=== PATIENT | female | born 1960 | race Caucasian/White ===

== ENCOUNTER 2016-11-05 12:22 | Emergency (ER) | payer OTHER ==
[~2016-11-05] VITALS: Ht 167.6 cm; Wt 120.1 kg
[~2016-11-05 12:22] MED LIST: ADVAIR 250/501 DISK IH; ADVAIR HFA120 INHAL2 IH; ALLEGRA180 MG PO; AMBIEN CR12.5 MG PO; AMOX TR-K CLV1 EAC4 PO; ANORO ELLIPTA1 EACH IH; APRESOLINE50 MG PO; ASPIR 8181 M1 PO; ASPIRIN81 M2 PO; ATENOLOL25 MG PO; ATIVAN0.5 MG PO; ATORVASTATIN CA80 MG PO; AUGMENTIN875 MG PO; AZULFIDINE500 MG PO; Azulfidine PO; BACLOFEN10 MG PO; BACTRIM,SEPT1 TABLET PO; BENAZEPRIL HCL5 MG PO; BESIVANCE5 ML LEFT EYE; BESIVANCE5 ML RIGHT EYE; BISACODYL5 MG PO; BYSTOLIC5 MG PO; CARAFATE1 GM PO; CEFTIN500 MG PO; CEFUROXIME500 MG PO; CENTRUM SILVER1 EAC3 PO; CHLORPROMAZINE200 MG PO; CIMZIA400 MG/2 M PO; CIMZIA400 MG/2 M SC; CIPRO500 MG PO; CIPROFLOXACIN500 M1 PO; CLONAZEPAM1 MG PO; CLONIDINE HCL0.1 MG PO; CLOPIDOGREL75 MG PO; CO-GESIC 5-5001 EACH PO; COGENTIN0.5 MG PO; COLACE100 MG PO; CRESTOR5 MG PO; DAILY VITE1 EAC1 PO; DEPAKOTE ER250 MG PO; DEPAKOTE ER500 MG PO; DEPAKOTE250 MG PO; DEPAKOTE500 MG PO; DIAZEPAM2 MG PO; DIAZEPAM5 MG PO; DIFLUCAN150 MG PO; DIVALPROEX SOD500 M1 PO; DIVALPROEX SOD500 MG PO; DOCUSATE SODIU250 MG PO; DRISDOL50000 UNIT PO; DULCOLAX10 MG PR; DUONEB 2.5-0.5 M3 ML AEROSOL; DURAGESIC50 MCG TD; Depakene PO; Depakote PO; ECONOPRED PLUS10 ML RIGHT EYE; EFFEXOR XR75 MG PO; ERGOCALCIF50000 UNIT PO; EXTRA STRENGTH500 M1 PO; Ecotrin PO; FENTANYL1 EAC1 TD; FERROUS SULFAT325 MG PO; FERROUS SULFATE PO; FLAGYL500 MG PO; FLEET ENEMA-AD118 ML PR; FLONASE16 G1 BOTH NARES; FOLIC ACID0.4 MG PO; FOLIC ACID0.8 M1 PO; FOLIC ACID0.8 MG PO; FOLIC ACID1 MG PO; FUROSEMIDE20 MG PO; Folvite PO; GABAPENTIN300 MG PO; GABAPENTIN400 MG PO; GABAPENTIN600 MG PO; GELNIQUE 10%30 GM TD; GEODON20 MG PO; GEODON40 MG PO; GLUCOSAMINE &1 EAC1 PO; GLUCOSAMINE CH1 EAC2 PO; GRALISE300 MG PO; GUAIATUSSIN AC118 ML PO; HALDOL1 MG PO; HALOPERIDOL5 MG/1 M1 IM; HEPARIN SO5000 UNITS SC; HYDROCODON-ACE1 EAC7 PO; HYDROCODON-ACE1 EAC8 PO; HYDROCODON-ACE1 EAC9 PO; HYDROCODON-ACE1 EACH PO; HYDROCODONE-AP1 EAC8 PO; IRON160 M1 PO; IRON325 M1 PO; IRON325 MG PO; KADIAN30 MG PO; KLOR-CON 1010 ME1 PO; LANSOPRAZOLE30 MG PO; LASIX20 MG PO; LASIX40 MG PO; LAXATIVE5 M1 PO; LEVAQUIN500 MG PO; LEVETIRACETAM250 MG PO; LEVOFLOXACIN750 MG PO; LEVOTHYROXINE125 MCG PO; LEVOTHYROXINE25 MCG PO; LEVOXYL125 MCG PO; LEXAPRO10 MG PO; LIDOCAINE HCL35 GM TP; LINZESS145 MCG PO; LINZESS290 MCG PO; LIORESAL10 MG PO; LIPITOR80 MG PO; LISINOPRIL10 MG PO; LISINOPRIL20 MG PO; LISINOPRIL40 MG PO; LORAZEPAM1 MG PO; LORTAB 10-3251 EACH PO; LORTAB 5-500 T1 EAC1 PO; LOTENSIN10 MG PO; LOTENSIN5 MG PO; LOTRISONE15 GM TP; Lioresal PO; MECLIZINE HCL25 M3 PO; MEDROL DOSEPAK4 MG PO; METOPROLOL SUCC25 MG PO; METOPROLOL SUCC50 MG PO; METOPROLOL TART25 MG PO; METRONIDAZOLE500 MG PO; MILK OF MAGN PO; MIRALAX17 GM PO; MIRALAX255 GM PO; MOBIC15 MG PO; MORPHINE SULFAT15 M1 PO; MOVANTIK25 MG PO; MS CONTIN,ORAMO15 M1 PO; MS CONTIN,ORAMO30 MG PO; NEURONTIN300 MG PO; NEURONTIN600 MG PO; NEURONTIN800 MG PO; NORCO 10/3251 TABLET PO; NORCO 5/3251 TABLET PO; NORCO 7.5/321 TABLET PO; OPANA ER10 MG PO; OPANA ER5 MG PO; OPANA IR5 MG PO; OXYMORPHONE HCL10 M1 PO; OXYMORPHONE HCL5 M1 PO; OXYMORPHONE HCL5 MG PO; Opana ER PO; PAXIL20 MG PO; PEPCID20 MG PO; PHENADOZ25 MG PR; PHENAZOPYRIDIN200 MG PO; PHENERGAN-CODE120 ML PO; PHENERGAN25 MG PR; PLAVIX75 MG PO; PREDNISONE10 MG PO; PREDNISONE20 MG PO; PREMARIN VAGI42.5 GM TP; PREMARIN VAGI42.5 GM VG; PRINIVIL5 MG PO; PROAIR HFA8.5 GM IH; PROCHLORPERAZIN10 MG PO; PROMETHAZINE HC25 M1 PO; PROMETHAZINE HC25 MG PR; PROMETHEGAN25 MG PR; PROTONIX40 MG PO; PROVENTIL,2.5 MG/3 M IH; PYRIDIUM200 MG PO; QUETIAPINE FUM100 MG PO; QUETIAPINE FUM300 MG PO; QUETIAPINE FUM400 MG PO; QVAR 40 MCG IN7.3 GM IH; RANITIDINE HCL300 MG PO; REGLAN10 MG PO; REMEDY CALAZIM113 G2 TP; RESTORIL15 MG PO; RESTORIL30 MG PO; RISPERDAL2 MG PO; RISPERDAL3 MG PO; RISPERIDONE2 MG PO; Reglan PO; SALT SUPPLEMENT PO; SENEXON-S TABL1 EACH PO; SENNA S TABLET1 EACH PO; SENNA-DOCUSATE1 EAC1 PO; SEROPHENE50 MG PO; SEROQUEL200 MG PO; SEROQUEL400 MG PO; SEROQUEL50 MG PO; SEROquel PO; SILVADENE20 GM TP; SIMVASTATIN40 MG PO; SODIUM CHLORIDE1 G1 PO; SPIRIVA RESPIMAT4 GM IH; SPIRIVA1 INHALATI IH; STAVZOR500 MG PO; SULFASALAZINE500 MG PO; SULFAZINE500 MG PO; SYNTHROID25 MCG PO; Sodium Chloride PO; TENORMIN25 MG PO; THERMOTABS1 TABLET PO; TIAGABINE HCL4 MG PO; TIZANIDINE HCL2 M1 PO; TIZANIDINE HCL2 MG PO; TIZANIDINE HCL4 MG PO; TOPAMAX50 MG PO; TOPROL XL25 MG PO; TRAMADOL HCL50 MG PO; TROKENDI XR100 MG PO; TUMS500 MG PO; TYLENOL EXTRA500 MG PO; TYLENOL REGULA325 MG PO; Tenormin PO; ULTRAM50 MG PO; VALIUM2 MG PO; VALIUM5 MG PO; VENLAFAXINE HCL75 MG PO; VENTOLIN HFA18 GM IH; VICODIN HP 10-1 EACH PO; VIMPAT150 MG PO; VIMPAT200 MG PO; VIMPAT50 MG PO; VITAMIN D PO; VITAMIN D250000 UNIT PO; VITAMIN D31000 UNI2 PO; VITAMIN D35000 UNIT PO; VITAMIN D5000 UNI1 PO; VITAMIN D5000 UNIT PO; Valium PO; XANAX0.25 MG PO; ZANAFLEX2 MG PO; ZANAFLEX4 MG PO; ZANTAC150 MG PO; ZANTAC300 MG PO; ZESTRIL20 MG PO; ZITHROMAX500 MG PO; ZOCOR40 MG PO; ZOFRAN4 MG PO; ZYVOX600 MG PO; Zofran PO; [UNRECOGNIZED DRUG - REMARK]
[2016-11-05 14:23] LABS: HEMATOCRIT 38.1 % (36.0-46.0); MCH 30.7 PG (29.0-34.0); MCHC 32.5 G/DL (30.0-36.0); MCV 94.3 FL (83-99); MEAN PLAT.VOLUME 9.6 uM^3 (9.5-12.4); PLATELET COUNT 111 K/uL (156-360); RBC DIS.WIDTH-CV 13.4 % (11.8-14.6); RBC DIS.WIDTH-SD 44.5 % (39-53); RED BLOOD COUNT 4.04 M/uL (3.80-5.20); WHITE BLOOD COUNT 4.3 K/uL (4.1-10.2)
[2016-11-05 14:25] LABS: EOSINOPHIL (%) 1.4 % (0-5); EOSINOPHIL COUNT 0.1 K/uL (0-0.3); IMMATURE GRANULOCYTE (%) 0.2 % (0.0-0.7); IMMATURE GRANULOCYTE COUNT 0.1 K/uL; LYMPHOCYTE COUNT 1.8 K/uL (1.0-2.8); MONOCYTE (%) 18.6 % (3-12); MONOCYTE COUNT 0.8 K/uL (0-0.8); NEUTROPHIL (%) 38.1 % (45-76); NEUTROPHIL COUNT 1.6 K/uL (1.8-6.4)
[2016-11-05 14:33] LABS: INTER. NORMALIZED RATIO 1.1; PROTHROMBIN TIME 11.5 (9.2-11.2); PTT 32.4 (25-32)
[2016-11-05 14:37] LABS: CHLORIDE 99 mEq/L (99-109); SODIUM 141 mEq/L (136-147)
[2016-11-05 14:39] LABS: GLUCOSE 109 mg/dL (70-99)
[2016-11-05 14:41] LABS: ANION GAP 15 MEQ/L (2-14)
[2016-11-05 14:43] LABS: GFR ESTIMATE (CALCULATED) 45 mL/min/
[2016-11-05 14:44] LABS: TROP-I INTERPRETATION NEGATIVE; TROPONIN-I < 0.01 ng/mL (0.0-0.30); UREA NITROGEN (BUN) 9 mg/dL (9-23)
[2016-11-05 15:08] LABS: ADD MIUA? YES; BILIRUBIN NEGATIVE; BLOOD NEGATIVE; COLOR YELLOW ((YELLOW)); GLUCOSE (STRIP) NEGATIVE; KETONES NEGATIVE; LEUKOCYTES MODERATE; NITRITE NEGATIVE; PH, URINE 5.5 (5-8); PROTEIN (STRIP) NEGATIVE; SPECIFIC GRAVITY 1.012 (1.000-1.030); UROBILINOGEN 0.2 MG/DL (0.2-1.0)
[2016-11-05 15:27] LABS: BACTERIA NONE SEEN; CASTS NONE SEEN /LPF; CRYSTALS NONE SEEN; EPITHELIAL CELLS RARE; MUCUS NONE SEEN; RED BLOOD CELLS NONE SEEN /HPF (0-5); UCUL ADDED? NO
[2016-11-05] MEDS ORDERED: KEFLEX500 MG PO (16:55)
[2016-11-05 18:05] VITALS: BP 112/57
== END 2016-11-05 18:07 | disposition home or self-care (01) ==
LOC: EME 12:22
PROVIDERS: Emergency Medicine
DX: N39.0 Urinary tract infection, site not specified (principal); E87.6 Hypokalemia; R41.82 Altered mental status, unspecified; M79.7 Fibromyalgia; G89.29 Other chronic pain; K21.9 Gastro-esophageal reflux disease without esophagitis; R56.9 Unspecified convulsions; Z86.73 Personal history of transient ischemic attack (TIA), and cerebral infarction without residual deficits; Z87.891 Personal history of nicotine dependence
CPT/HCPCS: 70450; 71010; 80048; 81003; 83735; 84484; 85025; 85610; 85730; 93005; 99281; 99284; J0696; J7030; J7050

== ENCOUNTER 2016-12-14 18:56 | Observation (INO) | payer OTHER ==
[~2016-12-14] VITALS: Ht 157.5 cm; Wt 115.9 kg
[~2016-12-14 18:56] MED LIST changes: +KEFLEX500 MG PO
[2016-12-14] MEDS ORDERED: FENTANYL1 EAC5 TD (20:21)
[2016-12-14 20:32] LABS: MCH 30.6 PG (29.0-34.0); MCHC 32.7 G/DL (30.0-36.0); MCV 93.5 FL (83-99); MEAN PLAT.VOLUME 9.2 uM^3 (9.5-12.4); PLATELET COUNT 80 K/uL (156-360); RBC DIS.WIDTH-CV 14.6 % (11.8-14.6); RBC DIS.WIDTH-SD 47.2 % (39-53); RED BLOOD COUNT 3.53 M/uL (3.80-5.20); WHITE BLOOD COUNT 3.3 K/uL (4.1-10.2)
[2016-12-14 20:53] LABS: CHLORIDE 103 mEq/L (99-109); POTASSIUM 4.7 mEq/L (3.7-5.4); SODIUM 141 mEq/L (136-147); TROP-I INTERPRETATION NEGATIVE; TROPONIN-I 0.01 ng/mL (0.0-0.30)
[2016-12-14 20:55] LABS: GLUCOSE 97 mg/dL (70-99)
[2016-12-14 20:56] LABS: ANION GAP 12 MEQ/L (2-14)
[2016-12-14 20:59] LABS: GFR ESTIMATE (CALCULATED) 17 mL/min/
[2016-12-14 21:00] LABS: UREA NITROGEN (BUN) 28 mg/dL (9-23)
[2016-12-14] MEDS ORDERED: LOPRESSOR25 MG PO (22:24)
[2016-12-14] MEDS ORDERED: LASIX20 MG PO (22:28)
[2016-12-14] MEDS ORDERED: TOPIRAMATE100 MG PO (22:31)
[2016-12-14] MEDS ORDERED: KLOR-CON M2020 MEQ PO (22:31)
[2016-12-14] MEDS ORDERED: LEVO-T25 MCG PO (22:32)
[2016-12-14] MEDS ORDERED: CORTISONE99 GM TP (22:33)
[2016-12-14] MEDS ORDERED: MEXSANA330 GM TP (22:34)
[2016-12-15 00:51] LABS: TOTAL BILIRUBIN 0.3 mg/dL (0.0-1.0)
[2016-12-15 00:52] LABS: ALKALINE PHOSPHATASE 56 IU/L (3-129)
[2016-12-15 00:55] LABS: DIRECT BILIRUBIN 0.1 mg/dL (0.0-0.3)
[2016-12-15 00:56] LABS: LIPASE 191 U/L (1.0-51.0)
[2016-12-15 01:38] LABS: ANISOCYTOSIS 1+; PLAT.SUFFICIENCY DECREASED; POLYCHROMASIA 1+; USER ID SLU
[2016-12-15 01:39] LABS: EOSINOPHIL (%) 0.7 % (0-5); IMMATURE GRANULOCYTE (%) 2.3 % (0.0-0.7); IMMATURE GRANULOCYTE COUNT 0.1 K/uL; LYMPHOCYTE COUNT 1.4 K/uL (1.0-2.8); MONOCYTE (%) 15.1 % (3-12); MONOCYTE COUNT 0.5 K/uL (0-0.8); NEUTROPHIL (%) 37.3 % (45-76); NEUTROPHIL COUNT 1.1 K/uL (1.8-6.4)
[2016-12-15 02:47] LABS: SALICYLATE < 5.0 MG/DL (15-30); URIC ACID 11.8 mg/dL (3.1-9.2)
[2016-12-15 03:12] VITALS: BP 110/71
[2016-12-15 05:00] LABS: METH RESISTANT S AUREUS PCR POSITIVE (NEGATIVE)
[2016-12-15 05:10] LABS: PROBE CHECK PASS
[2016-12-15 09:20] VITALS: BP 133/99
[2016-12-15 09:20] LABS: ANION GAP 14 MEQ/L (2-14); CHLORIDE 104 MEQ/L (99-109); POTASSIUM 3.9 MEQ/L (3.7-5.4); SAMPLE HEMOLYSIS CHECK 0; SAMPLE ICTERIC CHECK 0; SAMPLE LIPEMIA CHECK 0; SODIUM 142 MEQ/L (136-147)
[2016-12-15 09:28] LABS: GFR ESTIMATE (CALCULATED) 20 mL/min/; GLUCOSE 88 mg/dL (70-99); SERUM ETHYL ALCOHOL < 10 mg/dL; UREA NITROGEN (BUN) 26 mg/dL (9-23)
[2016-12-15 11:55] VITALS: BP 112/70
[2016-12-15 13:07] LABS: ABSOLUTE RETICULOCYTE CT. 0.1 M/uL (0.02-0.08); IMM.RETIC FRACTION 9.7 % (3-19); RETIC HGB EQUIVALENT 34.7 (28-36); RETICULOCYTE COUNT 2.8 % (0.5-1.8)
[2016-12-15 16:12] VITALS: BP 110/74
[2016-12-15 16:49] LABS: ANION GAP 6 MEQ/L (2-14); CHLORIDE 106 MEQ/L (99-109); POTASSIUM 4.4 MEQ/L (3.7-5.4); SAMPLE HEMOLYSIS CHECK 0; SAMPLE ICTERIC CHECK 0; SAMPLE LIPEMIA CHECK 0; SODIUM 140 MEQ/L (136-147)
[2016-12-15 16:54] LABS: GFR ESTIMATE (CALCULATED) 23 mL/min/; GLUCOSE 108 mg/dL (70-99); UREA NITROGEN (BUN) 24 mg/dL (9-23)
[2016-12-15 18:58] LABS: ADD MIUA? NO; BILIRUBIN NEGATIVE; BLOOD NEGATIVE; COLOR YELLOW ((YELLOW)); GLUCOSE (STRIP) NEGATIVE; KETONES NEGATIVE; LEUKOCYTES NEGATIVE; NITRITE NEGATIVE; PROTEIN (STRIP) NEGATIVE; SPECIFIC GRAVITY 1.016 (1.000-1.030); UROBILINOGEN 0.2 MG/DL (0.2-1.0)
[2016-12-15 19:30] LABS: AMPHETAMINES QUANT VALUE 0 NG/ML; BARBITUATES QUANT VALUE 0 NG/ML; BENZODIAZEPINES, URINE SCREEN POSITIVE (200 ng/mL); MARIJUANA QUANT VALUE 0 NG/ML; OPIATES QUANTITATIVE VALUE 0 NG/ML; PHENCYCLIDINE QUANT VALUE 0 NG/ML
[2016-12-15 20:17] VITALS: BP 132/70
[2016-12-16 05:49] VITALS: BP 138/63
[2016-12-16 06:47] LABS: HEMATOCRIT 32.1 % (36.0-46.0); MCH 31.1 PG (29.0-34.0); MCHC 32.7 G/DL (30.0-36.0); MEAN PLAT.VOLUME 9.4 uM^3 (9.5-12.4); PLATELET COUNT 76 K/uL (156-360); RBC DIS.WIDTH-CV 15.5 % (11.8-14.6); RBC DIS.WIDTH-SD 53.5 % (39-53); RED BLOOD COUNT 3.38 M/uL (3.80-5.20); WHITE BLOOD COUNT 3.3 K/uL (4.1-10.2)
[2016-12-16 06:59] LABS: INTER. NORMALIZED RATIO 1.2; PROTHROMBIN TIME 12.2 (9.2-11.2)
[2016-12-16 07:17] LABS: CHLORIDE 108 MEQ/L (99-109); GFR ESTIMATE (CALCULATED) 31 mL/min/; GLUCOSE 97 mg/dL (70-99); LACTATE DEHYDROGENASE 176 IU/L (20-246); POTASSIUM 3.9 MEQ/L (3.7-5.4); SAMPLE HEMOLYSIS CHECK 0; SAMPLE ICTERIC CHECK 0; SODIUM 140 MEQ/L (136-147); UREA NITROGEN (BUN) 20 mg/dL (9-23)
[2016-12-16 07:18] LABS: ANION GAP 6 MEQ/L (2-14); SAMPLE LIPEMIA CHECK 0
[2016-12-16 07:30] VITALS: BP 111/59
[2016-12-16 12:06] VITALS: BP 148/70
[2016-12-16] MEDS ORDERED: DIAZEPAM2 MG PO (15:08)
[2016-12-18 10:12] LABS: Flow Clinical Information R/O LYMPHOMA (()); Flow Number of Markers 22 (()); Flow Spec Viability 97 % (()); Flow Specimen Type PERIPHERAL BLOOD (())
== END 2016-12-16 17:38 | disposition home or self-care (01) ==
LOC: EME 18:56 → 5WEST 12-15 01:24 → EDOF 12-15 01:24 → 5WEST 12-15 02:49
PROVIDERS: Hospitalist; Internal Medicine; Internal Medicine Nephrology
DX: G92 Toxic encephalopathy (principal); T65.891A Toxic effect of other specified substances, accidental (unintentional), initial encounter; N17.9 Acute kidney failure, unspecified; E86.0 Dehydration; G89.29 Other chronic pain; M54.9 Dorsalgia, unspecified; Z79.891 Long term (current) use of opiate analgesic; D61.811 Other drug-induced pancytopenia; F25.9 Schizoaffective disorder, unspecified; T42.4X1A Poisoning by benzodiazepines, accidental (unintentional), initial encounter; L89.313 Pressure ulcer of right buttock, stage 3; E66.01 Morbid (severe) obesity due to excess calories; Z68.42 Body mass index [BMI] 45.0-49.9, adult; M45.9 Ankylosing spondylitis of unspecified sites in spine; Z86.73 Personal history of transient ischemic attack (TIA), and cerebral infarction without residual deficits; G43.909 Migraine, unspecified, not intractable, without status migrainosus; K21.9 Gastro-esophageal reflux disease without esophagitis; I10 Essential (primary) hypertension; E78.5 Hyperlipidemia, unspecified; E03.9 Hypothyroidism, unspecified; Z82.49 Family history of ischemic heart disease and other diseases of the circulatory system; Z82.3 Family history of stroke; Z88.8 Allergy status to other drugs, medicaments and biological substances
CPT/HCPCS: 70450; 71020; 74176; 80048; 80069; 80076; 80164; 80306 90; 81003; 82140; 82436; 82607; 82746; 83010 90; 83615; 83690; 83880; 84133; 84300; 84484; 84550; 85007; 85025; 85027; 85045; 85060; 85610; 87641; 88184 90; 88185 90; 88189 90; 93005; 94640; 94640 76; 99202; 99281; 99285; G0378; G0480; G8978 GP CJ; G8979 GP CI; G8987 GO CJ; G8988 CI; J7030

== ENCOUNTER 2017-02-28 20:57 | Observation (INO) | payer OTHER ==
[~2017-02-28] VITALS: Ht 157.5 cm; Wt 115.6 kg
[~2017-02-28 20:57] MED LIST changes: +CORTISONE99 GM TP; +FENTANYL1 EAC5 TD; +KLOR-CON M2020 MEQ PO; +LEVO-T25 MCG PO; +LOPRESSOR25 MG PO; +MEXSANA330 GM TP; +TOPIRAMATE100 MG PO
[2017-02-28 22:00] LABS: EOSINOPHIL (%) 0.3 % (0-5); HEMATOCRIT 33.9 % (36.0-46.0); IMMATURE GRANULOCYTE (%) 0.5 % (0.0-0.7); INSTRUMENT ABS NEUTROPHIL CT 3.7 K/uL; LYMPHOCYTE COUNT 1.8 K/uL (1.0-2.8); MCH 32.5 PG (29.0-34.0); MCHC 33.3 G/DL (30.0-36.0); MEAN PLAT.VOLUME 9.3 uM^3 (9.5-12.4); MONOCYTE (%) 10.9 % (3-12); MONOCYTE COUNT 0.7 K/uL (0-0.8); NEUTROPHIL (%) 58.6 % (45-76); NEUTROPHIL COUNT 3.7 K/uL (1.8-6.4); PLATELET COUNT 175 K/uL (156-360); RBC DIS.WIDTH-CV 12.7 % (11.8-14.6); RBC DIS.WIDTH-SD 45.1 % (39-53); RED BLOOD COUNT 3.48 M/uL (3.80-5.20); WHITE BLOOD COUNT 6.2 K/uL (4.1-10.2)
[2017-02-28 22:11] LABS: Estimated Average Glucose 91 mg/dL (70-123); HEMOGLOBIN A1c (GLYCOHEMOGLOB) 4.8 % HGB (Below 5.7)
[2017-02-28 22:14] LABS: CHLORIDE 97 mEq/L (99-109); POTASSIUM 4.5 mEq/L (3.7-5.4); SODIUM 129 mEq/L (136-147)
[2017-02-28 22:15] LABS: INTER. NORMALIZED RATIO 1.1; PROTHROMBIN TIME 10.7 (9.2-11.2); PTT 33.4 (25-32)
[2017-02-28 22:16] LABS: GLUCOSE 92 mg/dL (70-99); MCV 97.4 FL (83-99)
[2017-02-28 22:17] LABS: ANION GAP 8 MEQ/L (2-14)
[2017-02-28 22:18] LABS: TOTAL BILIRUBIN 0.3 mg/dL (0.0-1.0)
[2017-02-28 22:19] LABS: ALKALINE PHOSPHATASE 55 IU/L (3-129)
[2017-02-28 22:20] LABS: GFR ESTIMATE (CALCULATED) 55 mL/min/
[2017-02-28 22:21] LABS: UREA NITROGEN (BUN) 16 mg/dL (9-23)
[2017-02-28 22:22] LABS: TROP-I INTERPRETATION NEGATIVE; TROPONIN-I < 0.01 ng/mL (0.0-0.30)
[2017-02-28 22:50] LABS: ADD MIUA? YES; BILIRUBIN NEGATIVE; BLOOD NEGATIVE; GLUCOSE (STRIP) NEGATIVE; KETONES 5; LEUKOCYTES NEGATIVE; NITRITE NEGATIVE; PROTEIN (STRIP) 100; SPECIFIC GRAVITY 1.024 (1.000-1.030); UROBILINOGEN 0.2 MG/DL (0.2-1.0)
[2017-02-28 22:55] LABS: HDL CHOLESTEROL 65 MG/DL (Desirable>=50); LDL CHOLESTEROL 67 mg/dL (Desirable<100); NON-HDL CHOLESTEROL 89 mg/dL (Desirable<160); TOTAL CHOLESTEROL 154 mg/dL (Desirable<200); TRIGLYCERIDES 111 MG/DL (Normal: <150)
[2017-02-28 23:03] LABS: BACTERIA RARE /HPF; EPITHELIAL CELLS 1+ /HPF; MUCUS TRACE /LPF; RED BLOOD CELLS 0-5 /HPF (0-5); UCUL ADDED? NO; WHITE BLOOD CELLS 0-5 /HPF (0-5)
[2017-02-28 23:04] LABS: COLOR YELLOW ((YELLOW))
[2017-02-28] MEDS ORDERED: LEXAPRO20 MG PO (23:36)
[2017-02-28] MEDS ORDERED: VITAMIN D31000 UNIT PO (23:37)
[2017-02-28] MEDS ORDERED: TRIPLE FLEX CA1 EACH PO (23:38)
[2017-02-28] MEDS ORDERED: DEPAKOTE500 MG PO (23:38)
[2017-02-28] MEDS ORDERED: DURAGESIC12 MCG TD (23:39)
[2017-02-28] MEDS ORDERED: TOPIRAMATE50 MG PO (23:40)
[2017-02-28] MEDS ORDERED: HYDROXYZINE HCL25 MG PO (23:41)
[2017-02-28] MEDS ORDERED: HYDROXYZINE PAM25 MG PO (23:41)
[2017-02-28] MEDS ORDERED: OXYCODONE HCL5 MG PO (23:42)
[2017-03-01 02:12] VITALS: BP 118/84
[2017-03-01 08:30] VITALS: BP 144/74
[2017-03-01 12:00] VITALS: BP 144/90
[2017-03-01 15:16] VITALS: BP 119/59
[2017-03-01] MEDS ORDERED: LO-DOSE ASPIRIN81 M2 PO (15:45)
== END 2017-03-01 18:01 | disposition home or self-care (01) ==
LOC: EME → EDBD 20:57 → EDOF 03-01 01:00 → 5SOUTH 03-01 01:00
PROVIDERS: Emergency Medicine
DX: G43.909 Migraine, unspecified, not intractable, without status migrainosus (principal); R20.0 Anesthesia of skin; G40.909 Epilepsy, unspecified, not intractable, without status epilepticus; I10 Essential (primary) hypertension; E78.5 Hyperlipidemia, unspecified; K21.9 Gastro-esophageal reflux disease without esophagitis; E03.9 Hypothyroidism, unspecified; G89.4 Chronic pain syndrome; M54.9 Dorsalgia, unspecified; E66.01 Morbid (severe) obesity due to excess calories; Z86.73 Personal history of transient ischemic attack (TIA), and cerebral infarction without residual deficits; I89.0 Lymphedema, not elsewhere classified; F41.9 Anxiety disorder, unspecified; F32.9 Major depressive disorder, single episode, unspecified; D63.8 Anemia in other chronic diseases classified elsewhere; I35.0 Nonrheumatic aortic (valve) stenosis; F11.20 Opioid dependence, uncomplicated; K59.00 Constipation, unspecified; F25.9 Schizoaffective disorder, unspecified; M45.9 Ankylosing spondylitis of unspecified sites in spine; R53.1 Weakness
CPT/HCPCS: 70450; 70496; 70498; 70551; 71010; 80053; 80061; 81003; 83036; 84484; 85025; 85610; 85730; 93005; 94640; 99202; 99281; 99285; G0378; J0780; J1200; J1644; J7040

== ENCOUNTER 2017-03-08 22:27 | Emergency (ER) | payer OTHER ==
[~2017-03-08] VITALS: Ht 157.5 cm; Wt 110.6 kg
[~2017-03-08 22:27] MED LIST changes: +DURAGESIC12 MCG TD; +HYDROXYZINE HCL25 MG PO; +HYDROXYZINE PAM25 MG PO; +LEXAPRO20 MG PO; +LO-DOSE ASPIRIN81 M2 PO; +OXYCODONE HCL5 MG PO; +TOPIRAMATE50 MG PO; +TRIPLE FLEX CA1 EACH PO; +VITAMIN D31000 UNIT PO
[2017-03-09 01:30] VITALS: BP 147/87
== END 2017-03-09 01:31 | disposition home or self-care (01) ==
LOC: EME 22:27 → RME 22:27
DX: S81.012A Laceration without foreign body, left knee, initial encounter (principal); W19.XXXA Unspecified fall, initial encounter; Y93.01 Activity, walking, marching and hiking; Y92.039 Unspecified place in apartment as the place of occurrence of the external cause; J44.9 Chronic obstructive pulmonary disease, unspecified; I12.9 Hypertensive chronic kidney disease with stage 1 through stage 4 chronic kidney disease, or unspecified chronic kidney disease; Z87.891 Personal history of nicotine dependence; Z88.1 Allergy status to other antibiotic agents; Z88.6 Allergy status to analgesic agent; Z88.8 Allergy status to other drugs, medicaments and biological substances
CPT/HCPCS: 73564; 99281; 99284

== ENCOUNTER 2017-03-19 08:37 | Inpatient (IN) | payer OTHER ==
[~2017-03-19] VITALS: Ht 157.5 cm; Wt 119.8 kg
[2017-03-19 10:23] LABS: HEMATOCRIT 35.7 % (36.0-46.0); MCH 32.6 PG (29.0-34.0); MCHC 35.3 G/DL (30.0-36.0); RBC DIS.WIDTH-CV 11.9 % (11.8-14.6); RBC DIS.WIDTH-SD 39.8 % (39-53); RED BLOOD COUNT 3.86 M/uL (3.80-5.20)
[2017-03-19 10:24] LABS: CHLORIDE 97 mEq/L (99-109); POTASSIUM 4.2 mEq/L (3.7-5.4); SODIUM 126 mEq/L (136-147)
[2017-03-19 10:25] LABS: GLUCOSE 90 mg/dL (70-99)
[2017-03-19 10:27] LABS: ANION GAP 10 MEQ/L (2-14)
[2017-03-19 10:28] LABS: MCV 92.5 FL (83-99); WHITE BLOOD COUNT 3.5 K/uL (4.1-10.2)
[2017-03-19 10:29] LABS: GFR ESTIMATE (CALCULATED) > 59 mL/min/
[2017-03-19 10:30] LABS: UREA NITROGEN (BUN) 8 mg/dL (9-23)
[2017-03-19 11:12] LABS: EOSINOPHIL (%) 1.7 % (0-5); EOSINOPHIL COUNT 0.1 K/uL (0-0.3); HEMATOLOGY COMMENT 1 SMEAR COMPATIBLE; IMMATURE GRANULOCYTE (%) 1.1 % (0.0-0.7); INSTRUMENT ABS NEUTROPHIL CT 1.5 K/uL; LYMPHOCYTE COUNT 1.4 K/uL (1.0-2.8); MONOCYTE (%) 13.7 % (3-12); MONOCYTE COUNT 0.5 K/uL (0-0.8); NEUTROPHIL (%) 42.3 % (45-76); NEUTROPHIL COUNT 1.5 K/uL (1.8-6.4); PLAT.SUFFICIENCY DECREASED
[2017-03-19 11:13] LABS: PLATELET COUNT 94 K/uL (156-360)
[2017-03-19] MEDS ORDERED: METOPROLOL SUCC25 MG PO (12:32)
[2017-03-19] MEDS ORDERED: SODIUM CHLORIDE1 G1 PO (12:34)
[2017-03-19] MEDS ORDERED: ACETAMINOPHEN325 M1 PO (12:35)
[2017-03-19] MEDS ORDERED: CLOTRIMAZOLE-BE15 GM TP (12:35)
[2017-03-19] MEDS ORDERED: ADVIL,NUPRIN,M200 MG PO (12:36)
[2017-03-19] MEDS ORDERED: MIRALAX255 GM PO (12:37)
[2017-03-19] MEDS ORDERED: TROKENDI XR50 MG PO (13:10)
[2017-03-19] MEDS ORDERED: LEVO-T50 MCG PO (13:26)
[2017-03-19 14:12] VITALS: BP 124/77
[2017-03-19 16:11] VITALS: BP 103/52
[2017-03-19 19:49] VITALS: BP 170/77
[2017-03-19 23:46] VITALS: BP 126/53
[2017-03-20 04:22] VITALS: BP 122/56
[2017-03-20 05:13] LABS: METH RESISTANT S AUREUS PCR NEGATIVE (NEGATIVE)
[2017-03-20 05:14] LABS: PROBE CHECK PASS; SPECIMEN PROCESSING CONTROL PASS
[2017-03-20 05:54] LABS: ANION GAP 7 MEQ/L (2-14); CHLORIDE 98 MEQ/L (99-109); GFR ESTIMATE (CALCULATED) > 59 mL/min/; GLUCOSE 105 mg/dL (70-99); POTASSIUM 4.1 MEQ/L (3.7-5.4); SAMPLE HEMOLYSIS CHECK 0; SAMPLE ICTERIC CHECK 0; SAMPLE LIPEMIA CHECK 0; SODIUM 126 MEQ/L (136-147); UREA NITROGEN (BUN) 6 mg/dL (9-23)
[2017-03-20 08:18] VITALS: BP 86/53
[2017-03-20 12:40] LABS: CHLORIDE 99 mEq/L (99-109); POTASSIUM 4.1 mEq/L (3.7-5.4); SODIUM 125 mEq/L (136-147)
[2017-03-20 12:42] LABS: GLUCOSE 131 mg/dL (70-99)
[2017-03-20 12:44] LABS: ANION GAP 8 MEQ/L (2-14)
[2017-03-20 12:46] LABS: GFR ESTIMATE (CALCULATED) > 59 mL/min/
[2017-03-20 12:47] LABS: UREA NITROGEN (BUN) 5 mg/dL (9-23)
[2017-03-20 15:10] VITALS: BP 108/72
[2017-03-20 19:20] LABS: CHLORIDE 100 mEq/L (99-109); POTASSIUM 4.6 mEq/L (3.7-5.4); SODIUM 126 mEq/L (136-147)
[2017-03-20 19:21] LABS: GLUCOSE 112 mg/dL (70-99)
[2017-03-20 19:23] LABS: ANION GAP 6 MEQ/L (2-14)
[2017-03-20 19:25] LABS: GFR ESTIMATE (CALCULATED) > 59 mL/min/
[2017-03-20 19:26] LABS: UREA NITROGEN (BUN) 6 mg/dL (9-23)
[2017-03-20 20:25] VITALS: BP 119/68
[2017-03-20 23:22] VITALS: BP 82/47
[2017-03-21 03:32] VITALS: BP 104/55
[2017-03-21 06:22] LABS: EOSINOPHIL (%) 0.5 % (0-5); HEMATOCRIT 26.2 % (36.0-46.0); INSTRUMENT ABS NEUTROPHIL CT 1.9 K/uL; LYMPHOCYTE COUNT 1.4 K/uL (1.0-2.8); MCH 32.5 PG (29.0-34.0); MCHC 33.6 G/DL (30.0-36.0); MEAN PLAT.VOLUME 9.7 uM^3 (9.5-12.4); MONOCYTE (%) 19.8 % (3-12); MONOCYTE COUNT 0.8 K/uL (0-0.8); NEUTROPHIL (%) 44.8 % (45-76); NEUTROPHIL COUNT 1.9 K/uL (1.8-6.4); PLATELET COUNT 95 K/uL (156-360); RBC DIS.WIDTH-CV 12.1 % (11.8-14.6); RBC DIS.WIDTH-SD 42.4 % (39-53); WHITE BLOOD COUNT 4.2 K/uL (4.1-10.2)
[2017-03-21 06:28] LABS: MCV 96.7 FL (83-99); RED BLOOD COUNT 2.71 M/uL (3.80-5.20)
[2017-03-21 06:51] LABS: ANION GAP 9 MEQ/L (2-14); CHLORIDE 97 MEQ/L (99-109); POTASSIUM 4.2 MEQ/L (3.7-5.4); SAMPLE HEMOLYSIS CHECK 0; SAMPLE ICTERIC CHECK 0; SAMPLE LIPEMIA CHECK 0; SODIUM 127 MEQ/L (136-147)
[2017-03-21 06:56] LABS: GFR ESTIMATE (CALCULATED) > 59 mL/min/; GLUCOSE 98 mg/dL (70-99); UREA NITROGEN (BUN) 6 mg/dL (9-23)
[2017-03-21 07:40] VITALS: BP 145/65
[2017-03-21 16:07] VITALS: BP 125/60
[2017-03-21 23:45] VITALS: BP 92/60
[2017-03-22 03:45] VITALS: BP 78/62; BP 88/64
[2017-03-22 06:47] VITALS: BP 101/47
[2017-03-22 06:51] LABS: ANION GAP 8 MEQ/L (2-14); CHLORIDE 98 MEQ/L (99-109); GFR ESTIMATE (CALCULATED) > 59 mL/min/; GLUCOSE 92 mg/dL (70-99); POTASSIUM 4.1 MEQ/L (3.7-5.4); SAMPLE HEMOLYSIS CHECK 0; SAMPLE ICTERIC CHECK 0; SAMPLE LIPEMIA CHECK 0; SODIUM 129 MEQ/L (136-147); UREA NITROGEN (BUN) 5 mg/dL (9-23)
[2017-03-22 13:00] VITALS: BP 130/71
[2017-03-22 13:05] LABS: HEMATOCRIT 27.2 % (36.0-46.0); MCV 96.1 FL (83-99)
[2017-03-22 23:42] VITALS: BP 104/54
[2017-03-23 07:20] VITALS: BP 136/73
[2017-03-23 07:53] LABS: EOSINOPHIL (%) 1.3 % (0-5); EOSINOPHIL COUNT 0.1 K/uL (0-0.3); HEMATOCRIT 25.8 % (36.0-46.0); IMMATURE GRANULOCYTE (%) 0.4 % (0.0-0.7); INSTRUMENT ABS NEUTROPHIL CT 2.8 K/uL; LYMPHOCYTE COUNT 1.6 K/uL (1.0-2.8); MCHC 35.3 G/DL (30.0-36.0); MCV 96.3 FL (83-99); MEAN PLAT.VOLUME 9.5 uM^3 (9.5-12.4); MONOCYTE (%) 17.5 % (3-12); MONOCYTE COUNT 0.9 K/uL (0-0.8); NEUTROPHIL (%) 51.5 % (45-76); NEUTROPHIL COUNT 2.8 K/uL (1.8-6.4); PLATELET COUNT 120 K/uL (156-360); RBC DIS.WIDTH-CV 12.3 % (11.8-14.6); RBC DIS.WIDTH-SD 43.8 % (39-53); RED BLOOD COUNT 2.68 M/uL (3.80-5.20); WHITE BLOOD COUNT 5.4 K/uL (4.1-10.2)
[2017-03-23 08:25] LABS: ALKALINE PHOSPHATASE 41 IU/L (3-129); ANION GAP 9 MEQ/L (2-14); CHLORIDE 99 MEQ/L (99-109); GFR ESTIMATE (CALCULATED) > 59 mL/min/; GLUCOSE 91 mg/dL (70-99); POTASSIUM 4.5 MEQ/L (3.7-5.4); SAMPLE HEMOLYSIS CHECK 0; SAMPLE ICTERIC CHECK 0; SAMPLE LIPEMIA CHECK 0; SODIUM 131 MEQ/L (136-147); TOTAL BILIRUBIN 0.5 MG/DL (0.0-1.0); UREA NITROGEN (BUN) 5 mg/dL (9-23)
[2017-03-23 08:26] LABS: ANION GAP 8 MEQ/L (2-14); CHLORIDE 99 MEQ/L (99-109); GFR ESTIMATE (CALCULATED) > 59 mL/min/; GLUCOSE 91 mg/dL (70-99); POTASSIUM 4.5 MEQ/L (3.7-5.4); SAMPLE HEMOLYSIS CHECK 0; SAMPLE ICTERIC CHECK 0; SAMPLE LIPEMIA CHECK 0; SODIUM 130 MEQ/L (136-147); UREA NITROGEN (BUN) 5 mg/dL (9-23)
[2017-03-23 15:48] VITALS: BP 132/67
[2017-03-23 23:47] VITALS: BP 117/67
[2017-03-24 04:23] VITALS: BP 125/81
[2017-03-24 08:36] LABS: ANION GAP 9 MEQ/L (2-14); CHLORIDE 97 MEQ/L (99-109); GFR ESTIMATE (CALCULATED) > 59 mL/min/; GLUCOSE 103 mg/dL (70-99); POTASSIUM 4.2 MEQ/L (3.7-5.4); SAMPLE HEMOLYSIS CHECK 0; SAMPLE ICTERIC CHECK 0; SAMPLE LIPEMIA CHECK 0; SODIUM 129 MEQ/L (136-147); UREA NITROGEN (BUN) 5 mg/dL (9-23)
[2017-03-24 08:51] VITALS: BP 121/76
[2017-03-24 12:14] VITALS: BP 127/69
[2017-03-24 17:18] VITALS: BP 185/70
[2017-03-24 19:52] VITALS: BP 99/57
[2017-03-24 23:58] VITALS: BP 131/75
[2017-03-25 05:03] VITALS: BP 106/50
[2017-03-25 07:44] LABS: ANION GAP 9 MEQ/L (2-14); CHLORIDE 97 MEQ/L (99-109); GFR ESTIMATE (CALCULATED) > 59 mL/min/; GLUCOSE 111 mg/dL (70-99); POTASSIUM 4.1 MEQ/L (3.7-5.4); SAMPLE HEMOLYSIS CHECK 0; SAMPLE ICTERIC CHECK 0; SAMPLE LIPEMIA CHECK 0; SODIUM 129 MEQ/L (136-147); UREA NITROGEN (BUN) 8 mg/dL (9-23)
[2017-03-25 08:00] VITALS: BP 109/55
[2017-03-25 11:52] VITALS: BP 122/69
[2017-03-25 14:50] LABS: HEMATOCRIT 27.5 % (36.0-46.0); MCH 32.7 PG (29.0-34.0); MCHC 33.8 G/DL (30.0-36.0); MCV 96.8 FL (83-99); MEAN PLAT.VOLUME 8.9 uM^3 (9.5-12.4); PLATELET COUNT 155 K/uL (156-360); RBC DIS.WIDTH-SD 42.4 % (39-53); RED BLOOD COUNT 2.84 M/uL (3.80-5.20); WHITE BLOOD COUNT 6.5 K/uL (4.1-10.2)
[2017-03-25 16:30] VITALS: BP 117/69
[2017-03-25 19:34] VITALS: BP 116/53
[2017-03-26 00:36] VITALS: BP 109/54
[2017-03-26 04:00] VITALS: BP 118/58
[2017-03-26 07:21] LABS: ANION GAP 11 MEQ/L (2-14); CHLORIDE 99 MEQ/L (99-109); GFR ESTIMATE (CALCULATED) > 59 mL/min/; GLUCOSE 117 mg/dL (70-99); POTASSIUM 3.9 MEQ/L (3.7-5.4); SAMPLE HEMOLYSIS CHECK 0; SAMPLE ICTERIC CHECK 0; SAMPLE LIPEMIA CHECK 0; SODIUM 134 MEQ/L (136-147); UREA NITROGEN (BUN) 10 mg/dL (9-23)
[2017-03-26 08:09] VITALS: BP 121/61
[2017-03-26 11:22] VITALS: BP 119/67
[2017-03-26 15:45] VITALS: BP 117/59
[2017-03-26 20:10] VITALS: BP 127/60
[2017-03-27 00:34] VITALS: BP 102/57
[2017-03-27 03:50] VITALS: BP 115/60
[2017-03-27 07:50] LABS: ANION GAP 9 MEQ/L (2-14); CHLORIDE 99 MEQ/L (99-109); GFR ESTIMATE (CALCULATED) > 59 mL/min/; GLUCOSE 101 mg/dL (70-99); POTASSIUM 3.6 MEQ/L (3.7-5.4); SAMPLE HEMOLYSIS CHECK 0; SAMPLE ICTERIC CHECK 0; SAMPLE LIPEMIA CHECK 0; SODIUM 133 MEQ/L (136-147); UREA NITROGEN (BUN) 12 mg/dL (9-23)
[2017-03-27 08:45] VITALS: BP 109/57
[2017-03-27 12:01] VITALS: BP 120/58
[2017-03-27 16:12] VITALS: BP 97/53
[2017-03-27 19:43] VITALS: BP 146/60
[2017-03-28 00:32] VITALS: BP 109/58
[2017-03-28 04:51] VITALS: BP 115/57
[2017-03-28 07:10] LABS: ANION GAP 9 MEQ/L (2-14); CHLORIDE 103 MEQ/L (99-109); GFR ESTIMATE (CALCULATED) > 59 mL/min/; GLUCOSE 100 mg/dL (70-99); POTASSIUM 4.1 MEQ/L (3.7-5.4); SAMPLE HEMOLYSIS CHECK 0; SAMPLE ICTERIC CHECK 0; SAMPLE LIPEMIA CHECK 0; SODIUM 136 MEQ/L (136-147); UREA NITROGEN (BUN) 10 mg/dL (9-23)
[2017-03-28 08:01] VITALS: BP 118/56
[2017-03-28 08:44] LABS: HEMATOCRIT 25.9 % (36.0-46.0); MCH 32.8 PG (29.0-34.0); MCHC 33.2 G/DL (30.0-36.0); MCV 98.9 FL (83-99); MEAN PLAT.VOLUME 8.8 uM^3 (9.5-12.4); RBC DIS.WIDTH-CV 12.3 % (11.8-14.6); RBC DIS.WIDTH-SD 44.6 % (39-53); RED BLOOD COUNT 2.62 M/uL (3.80-5.20); WHITE BLOOD COUNT 5.6 K/uL (4.1-10.2)
[2017-03-28 08:45] LABS: PLATELET COUNT 247 K/uL (156-360)
[2017-03-28 12:17] VITALS: BP 136/65
[2017-03-28] MEDS ORDERED: DOCUSATE SODIU100 MG PO (15:30)
[2017-03-28] MEDS ORDERED: SPIRIVA RESPIMAT4 GM IH (15:30)
[2017-03-28] MEDS ORDERED: FUROSEMIDE20 MG PO (15:30)
[2017-03-28] MEDS ORDERED: DURAGESIC12 MCG TD (15:34)
[2017-03-28] MEDS ORDERED: OXYCODONE HCL5 MG PO ×2 (15:34→15:42)
[2017-03-28] MEDS ORDERED: FENTANYL1 EAC4 TD (15:42)
[2017-03-28] MEDS ORDERED: LOPRESSOR25 MG PO (15:42)
[2017-03-28 15:59] VITALS: BP 122/67
== END 2017-03-28 19:03 | DRG 949 ==
LOC: EME 08:37 → EDOF 12:18 → 3EAST 12:18
PROVIDERS: Emergency Medicine; Hospitalist; Internal Medicine; Internal Medicine Nephrology; Physician Assistant
PROC: 0QSGXZZ Reposition Right Tibia, External Approach (ICD-10-PCS; principal; 2017-03-19)
DX: S81.002D Unspecified open wound, left knee, subsequent encounter (principal); E22.2 Syndrome of inappropriate secretion of antidiuretic hormone; D69.6 Thrombocytopenia, unspecified; D64.9 Anemia, unspecified; J44.9 Chronic obstructive pulmonary disease, unspecified; I10 Essential (primary) hypertension; M54.9 Dorsalgia, unspecified; W01.0XXD Fall on same level from slipping, tripping and stumbling without subsequent striking against object, subsequent encounter; G43.909 Migraine, unspecified, not intractable, without status migrainosus; M79.7 Fibromyalgia; K21.9 Gastro-esophageal reflux disease without esophagitis; F32.9 Major depressive disorder, single episode, unspecified; K29.70 Gastritis, unspecified, without bleeding; I12.9 Hypertensive chronic kidney disease with stage 1 through stage 4 chronic kidney disease, or unspecified chronic kidney disease; N18.9 Chronic kidney disease, unspecified; G40.909 Epilepsy, unspecified, not intractable, without status epilepticus; F41.9 Anxiety disorder, unspecified; E78.5 Hyperlipidemia, unspecified; M45.9 Ankylosing spondylitis of unspecified sites in spine; G89.29 Other chronic pain; F43.10 Post-traumatic stress disorder, unspecified; E03.9 Hypothyroidism, unspecified; E66.01 Morbid (severe) obesity due to excess calories; Z68.42 Body mass index [BMI] 45.0-49.9, adult; F25.9 Schizoaffective disorder, unspecified; D50.0 Iron deficiency anemia secondary to blood loss (chronic); E55.9 Vitamin D deficiency, unspecified; E04.1 Nontoxic single thyroid nodule; I89.0 Lymphedema, not elsewhere classified; I35.0 Nonrheumatic aortic (valve) stenosis; G47.33 Obstructive sleep apnea (adult) (pediatric); Z90.49 Acquired absence of other specified parts of digestive tract; Z86.73 Personal history of transient ischemic attack (TIA), and cerebral infarction without residual deficits; S82.851D Displaced trimalleolar fracture of right lower leg, subsequent encounter for closed fracture with routine healing
CPT/HCPCS: 71010; 72148; 73600; 73610; 80048; 80048 91; 80053; 80164; 83930; 83935; 84300; 84443; 84550; 85014; 85018; 85025; 85027; 87641; 93005; 93306; 94010; 94640; 94640 76; 94799; 95819; 97530 GO; 97530 GP; 99202; 99281; 99285; J1170; J1650; J1940; J2270; J2405; J7030; J7050

== ENCOUNTER 2017-05-10 16:55 | Emergency (ER) | payer OTHER ==
[~2017-05-10] VITALS: Ht 157.5 cm; Wt 115.2 kg
[~2017-05-10 16:55] MED LIST changes: +ACETAMINOPHEN325 M1 PO; +ADVIL,NUPRIN,M200 MG PO; +CLOTRIMAZOLE-BE15 GM TP; +DOCUSATE SODIU100 MG PO; +FENTANYL1 EAC4 TD; +LEVO-T50 MCG PO; +TROKENDI XR50 MG PO
[2017-05-10 18:13] LABS: EOSINOPHIL (%) 1.3 % (0-5); EOSINOPHIL COUNT 0.1 K/uL (0-0.3); HEMATOCRIT 32.7 % (36.0-46.0); IMMATURE GRANULOCYTE (%) 0.6 % (0.0-0.7); INSTRUMENT ABS NEUTROPHIL CT 1.7 K/uL; LYMPHOCYTE COUNT 2.3 K/uL (1.0-2.8); MCH 30.9 PG (29.0-34.0); MCHC 32.7 G/DL (30.0-36.0); MCV 94.5 FL (83-99); MONOCYTE (%) 14.6 % (3-12); MONOCYTE COUNT 0.7 K/uL (0-0.8); NEUTROPHIL (%) 36.1 % (45-76); NEUTROPHIL COUNT 1.7 K/uL (1.8-6.4); PLATELET COUNT 156 K/uL (156-360); RBC DIS.WIDTH-CV 12.7 % (11.8-14.6); RBC DIS.WIDTH-SD 43.8 % (39-53); RED BLOOD COUNT 3.46 M/uL (3.80-5.20); WHITE BLOOD COUNT 4.8 K/uL (4.1-10.2)
[2017-05-10 18:24] LABS: CHLORIDE 103 mEq/L (99-109); POTASSIUM 4.1 mEq/L (3.7-5.4); SODIUM 134 mEq/L (136-147)
[2017-05-10 18:26] LABS: GLUCOSE 112 mg/dL (70-99)
[2017-05-10 18:27] LABS: ANION GAP 9 MEQ/L (2-14)
[2017-05-10 18:28] LABS: TOTAL BILIRUBIN 0.3 mg/dL (0.0-1.0)
[2017-05-10 18:30] LABS: ALKALINE PHOSPHATASE 60 IU/L (3-129); GFR ESTIMATE (CALCULATED) 55 mL/min/
[2017-05-10 18:31] LABS: UREA NITROGEN (BUN) 7 mg/dL (9-23)
[2017-05-10 18:32] LABS: ADD MIUA? YES; BILIRUBIN NEGATIVE; BLOOD NEGATIVE; COLOR YELLOW ((YELLOW)); GLUCOSE (STRIP) NEGATIVE; KETONES NEGATIVE; LEUKOCYTES LARGE; NITRITE NEGATIVE; PROTEIN (STRIP) 30; SPECIFIC GRAVITY 1.015 (1.000-1.030)
[2017-05-10 18:59] LABS: BACTERIA RARE /HPF; EPITHELIAL CELLS RARE /HPF; MUCUS TRACE /LPF; UCUL ADDED? YES; WHITE BLOOD CELLS TNTC /HPF (0-5)
[2017-05-10] MEDS ORDERED: KEFLEX500 MG PO (19:49)
[2017-05-10 21:59] VITALS: BP 108/75
== END 2017-05-10 22:04 | disposition home or self-care (01) ==
LOC: EME → EDBD 16:55 → EME 22:04
PROVIDERS: Emergency Medicine
DX: N39.0 Urinary tract infection, site not specified (principal); K21.9 Gastro-esophageal reflux disease without esophagitis; M79.7 Fibromyalgia; R56.9 Unspecified convulsions; Z90.49 Acquired absence of other specified parts of digestive tract; Z87.891 Personal history of nicotine dependence
CPT/HCPCS: 71010; 80053; 81003; 83605; 85025; 87040; 87086; 99281; 99285; J2310; J7030

== ENCOUNTER 2017-08-06 10:34 | Inpatient (IN) | payer OTHER ==
[~2017-08-06] VITALS: Ht 157.5 cm; Wt 100.7 kg
[~2017-08-06 10:34] MED LIST changes: -KLOR-CON M2020 MEQ PO; +KLOR-CON20 MEQ PO; +MIRALAX119 GM PO; +OXYCODONE HCL10 MG PO; +REQUIP2 MG PO
[2017-08-06 11:27] VITALS: BP 176/94
[2017-08-06 12:35] LABS: METH RESISTANT S AUREUS PCR POSITIVE (NEGATIVE)
[2017-08-06 12:36] LABS: PROBE CHECK PASS
[2017-08-06 17:31] VITALS: BP 148/85
[2017-08-06 19:15] VITALS: BP 129/72
[2017-08-07 00:21] VITALS: BP 138/92
[2017-08-07 03:57] VITALS: BP 140/77
[2017-08-07 07:52] VITALS: BP 126/76
[2017-08-07 11:46] VITALS: BP 123/68
[2017-08-07 15:40] VITALS: BP 130/64
[2017-08-07 19:25] VITALS: BP 125/75
[2017-08-08 00:08] VITALS: BP 120/72
[2017-08-08 03:26] VITALS: BP 125/78
[2017-08-08 07:45] VITALS: BP 132/81
[2017-08-08 10:58] VITALS: BP 135/71
[2017-08-08 11:04] LABS: HEMATOCRIT 33.3 % (36.0-46.0); MCH 32.4 PG (29.0-34.0); MCHC 34.8 G/DL (30.0-36.0); MEAN PLAT.VOLUME 8.8 uM^3 (9.5-12.4); PLATELET COUNT 140 K/uL (156-360); RBC DIS.WIDTH-CV 14.6 % (11.8-14.6); RBC DIS.WIDTH-SD 49.6 % (39-53); RED BLOOD COUNT 3.58 M/uL (3.80-5.20); WHITE BLOOD COUNT 3.3 K/uL (4.1-10.2)
[2017-08-08 11:46] LABS: TROP-I INTERPRETATION NEGATIVE; TROPONIN-I < 0.01 ng/mL (0.0-0.30)
[2017-08-08 11:47] LABS: ANION GAP 6 MEQ/L (2-14); CHLORIDE 100 MEQ/L (99-109); GFR ESTIMATE (CALCULATED) > 59 mL/min/; GLUCOSE 96 mg/dL (70-99); SAMPLE HEMOLYSIS CHECK 0; SAMPLE ICTERIC CHECK 0; SAMPLE LIPEMIA CHECK 0; SODIUM 131 MEQ/L (136-147); UREA NITROGEN (BUN) 8 mg/dL (9-23)
[2017-08-08 16:06] VITALS: BP 124/60
[2017-08-08 19:10] VITALS: BP 124/74; BP 130/73
[2017-08-09 07:50] VITALS: BP 136/78
[2017-08-09] MEDS ORDERED: OXYCODONE HCL5 MG PO (10:01)
[2017-08-09] MEDS ORDERED: LOVENOX40 MG/0.4 SC (10:01)
[2017-08-09 16:00] VITALS: BP 136/78
[2017-08-10 00:10] VITALS: BP 132/70
[2017-08-10 07:25] VITALS: BP 166/80
[2017-08-10 14:45] VITALS: BP 114/67
== END 2017-08-10 14:43 | DRG 494 ==
LOC: SDC 10:34 → 2SOUTH 14:40 → 2EAST 14:40 → ENRESERV 15:11 → EDSTATUS 15:30 → SDC 15:31 → ENRESERV 15:49 → 2EAST 17:15
PROVIDERS: Hospitalist; Orthopaedic Surgery
PROC: 0SSF04Z Reposition Right Ankle Joint with Internal Fixation Device, Open Approach (ICD-10-PCS; principal; 2017-08-06)
DX: S93.431A Sprain of tibiofibular ligament of right ankle, initial encounter (principal); M25.371 Other instability, right ankle; S82.851G Displaced trimalleolar fracture of right lower leg, subsequent encounter for closed fracture with delayed healing; D69.6 Thrombocytopenia, unspecified; E66.01 Morbid (severe) obesity due to excess calories; Z68.39 Body mass index [BMI] 39.0-39.9, adult; G20 Parkinson's disease; G89.4 Chronic pain syndrome; M54.2 Cervicalgia; M54.5 Low back pain; G47.33 Obstructive sleep apnea (adult) (pediatric); D63.8 Anemia in other chronic diseases classified elsewhere; E03.9 Hypothyroidism, unspecified; E78.5 Hyperlipidemia, unspecified; G40.909 Epilepsy, unspecified, not intractable, without status epilepticus; M54.9 Dorsalgia, unspecified; I10 Essential (primary) hypertension; J44.9 Chronic obstructive pulmonary disease, unspecified; K21.9 Gastro-esophageal reflux disease without esophagitis; M45.9 Ankylosing spondylitis of unspecified sites in spine; R60.9 Edema, unspecified; R07.9 Chest pain, unspecified; F41.9 Anxiety disorder, unspecified; F32.9 Major depressive disorder, single episode, unspecified; E78.00 Pure hypercholesterolemia, unspecified; F43.10 Post-traumatic stress disorder, unspecified; M81.0 Age-related osteoporosis without current pathological fracture; Z86.73 Personal history of transient ischemic attack (TIA), and cerebral infarction without residual deficits; Z82.49 Family history of ischemic heart disease and other diseases of the circulatory system; Z87.891 Personal history of nicotine dependence
CPT/HCPCS: 70450; 70460; 73600; 76000; 80048; 84484; 85027; 87641; 93005; 94010; 97530 GO; 97530 GP; 99202; C1713; J0330; J0690; J1100; J1170; J1650; J2250; J2405; J3010; J7120; Q0177; S0020

== ENCOUNTER 2017-08-11 21:07 | Inpatient (IN) | payer OTHER ==
[~2017-08-11] VITALS: Ht 162.6 cm; Wt 92.0 kg
[~2017-08-11 21:07] MED LIST changes: +LOVENOX40 MG/0.4 SC
[2017-08-12 00:04] LABS: ADD MIUA? NO; BILIRUBIN NEGATIVE; BLOOD NEGATIVE; COLOR YELLOW ((YELLOW)); GLUCOSE (STRIP) NEGATIVE; KETONES 5; LEUKOCYTES NEGATIVE; NITRITE NEGATIVE; PROTEIN (STRIP) NEGATIVE; SPECIFIC GRAVITY 1.013 (1.000-1.030); UCUL ADDED? NO; UROBILINOGEN 0.2 MG/DL (0.2-1.0)
[2017-08-12 00:20] LABS: HEMATOCRIT 32.9 % (36.0-46.0); MCH 31.9 PG (29.0-34.0); MCHC 35.6 G/DL (30.0-36.0); MCV 89.6 FL (83-99); PLATELET COUNT 149 K/uL (156-360); RBC DIS.WIDTH-CV 13.6 % (11.8-14.6); RED BLOOD COUNT 3.67 M/uL (3.80-5.20); WHITE BLOOD COUNT 7.1 K/uL (4.1-10.2)
[2017-08-12 00:28] LABS: CHLORIDE 99 mEq/L (99-109); POTASSIUM 3.8 mEq/L (3.7-5.4); SODIUM 128 mEq/L (136-147)
[2017-08-12 00:30] LABS: GLUCOSE 106 mg/dL (70-99)
[2017-08-12 00:31] LABS: ANION GAP 10 MEQ/L (2-14)
[2017-08-12 00:34] LABS: GFR ESTIMATE (CALCULATED) > 59 mL/min/
[2017-08-12 00:35] LABS: UREA NITROGEN (BUN) 5 mg/dL (9-23)
[2017-08-12 01:58] LABS: CREATINE KINASE 122 IU/L (1-294); TOTAL CK 122 IU/L (1-294)
[2017-08-12 02:03] LABS: CK-MB 1.9 ng/mL (0.0-4.9)
[2017-08-12 04:04] VITALS: BP 125/86
[2017-08-12 07:04] VITALS: BP 146/87
[2017-08-12 09:00] LABS: BASE EXCESS -2.9 mEq/L (-3 to +3); BICARBONATE 22.6 mEq/L (22-26); CARBOXY HGB 1.5 % (0-5); METHEMOGLOBIN 1.7 % (0-1.5); PO2 123 mm Hg (80-100); pH 7.35 (7.35-7.45)
[2017-08-12 09:01] LABS: COMMENTS - BLOOD GASES A+C+; DEVICE NC; O2 FLOW 2 L/MIN; PCO2 41 mm Hg (35-45); SITE LR; TOTAL RESP RATE 18 resp/min
[2017-08-12 09:23] LABS: HEMATOCRIT 32.8 % (36.0-46.0); MCH 33.4 PG (29.0-34.0); MCHC 36.3 G/DL (30.0-36.0); MCV 92.1 FL (83-99); MEAN PLAT.VOLUME 9.3 uM^3 (9.5-12.4); PLATELET COUNT 141 K/uL (156-360); RBC DIS.WIDTH-CV 14.1 % (11.8-14.6); RBC DIS.WIDTH-SD 47.6 % (39-53); RED BLOOD COUNT 3.56 M/uL (3.80-5.20); WHITE BLOOD COUNT 5.5 K/uL (4.1-10.2)
[2017-08-12 10:24] LABS: ALKALINE PHOSPHATASE 58 IU/L (3-129); ANION GAP 9 MEQ/L (2-14); CHLORIDE 98 MEQ/L (99-109); GFR ESTIMATE (CALCULATED) > 59 mL/min/; GLUCOSE 100 mg/dL (70-99); POTASSIUM 3.6 MEQ/L (3.7-5.4); SAMPLE HEMOLYSIS CHECK 0; SAMPLE ICTERIC CHECK 0; SAMPLE LIPEMIA CHECK 0; SODIUM 129 MEQ/L (136-147); TOTAL BILIRUBIN 0.6 MG/DL (0.0-1.0); UREA NITROGEN (BUN) 6 mg/dL (9-23)
[2017-08-12] MEDS ORDERED: REQUIP2 MG PO ×2 (10:31→10:32)
[2017-08-12] MEDS ORDERED: VOLTAREN 1% GE100 GM TP (10:33)
[2017-08-12] MEDS ORDERED: OXYCODONE HCL10 MG PO (10:33)
[2017-08-12 15:07] VITALS: BP 139/77
[2017-08-12 19:39] VITALS: BP 181/90
[2017-08-13] VITALS (7 sets, daily range): BP systolic 104–136; BP diastolic 51–82
[2017-08-13 08:40] LABS: HEMATOCRIT 35.9 % (36.0-46.0); MCH 32.4 PG (29.0-34.0); MCHC 35.4 G/DL (30.0-36.0); MCV 91.6 FL (83-99); RBC DIS.WIDTH-CV 14.2 % (11.8-14.6); RBC DIS.WIDTH-SD 47.7 % (39-53); RED BLOOD COUNT 3.92 M/uL (3.80-5.20); WHITE BLOOD COUNT 5.1 K/uL (4.1-10.2)
[2017-08-13 08:54] LABS: ALKALINE PHOSPHATASE 62 IU/L (3-129); ANION GAP 8 MEQ/L (2-14); CHLORIDE 101 MEQ/L (99-109); GFR ESTIMATE (CALCULATED) > 59 mL/min/; GLUCOSE 106 mg/dL (70-99); SAMPLE HEMOLYSIS CHECK 0; SAMPLE ICTERIC CHECK 0; SAMPLE LIPEMIA CHECK 0; SODIUM 131 MEQ/L (136-147); TOTAL BILIRUBIN 0.5 MG/DL (0.0-1.0); UREA NITROGEN (BUN) 7 mg/dL (9-23)
[2017-08-13 09:32] LABS: MEAN PLAT.VOLUME ND uM^3 (9.5-12.4); PLATELET CLUMPS PRESENT - PLATELET COUNTS APPEARS DECREASED; PLATELET COUNT ND K/uL (156-360)
[2017-08-14 03:34] VITALS: BP 124/61
[2017-08-14 07:40] VITALS: BP 161/67
[2017-08-14 11:55] VITALS: BP 111/61
== END 2017-08-14 16:30 | DRG 92 ==
LOC: EME → EDBD 21:07 → 5SOUTH 08-12 02:35 → EDOF 08-12 02:35 → ENRESERV 08-12 02:36 → 5SOUTH 08-12 03:50
PROVIDERS: Emergency Medicine; Internal Medicine; Nurse Practitioner Adult Health
DX: G92 Toxic encephalopathy (principal); T39.95XA Adverse effect of unspecified nonopioid analgesic, antipyretic and antirheumatic, initial encounter; E22.2 Syndrome of inappropriate secretion of antidiuretic hormone; F05 Delirium due to known physiological condition; F25.9 Schizoaffective disorder, unspecified; J44.1 Chronic obstructive pulmonary disease with (acute) exacerbation; E66.01 Morbid (severe) obesity due to excess calories; F31.9 Bipolar disorder, unspecified; G20 Parkinson's disease; E87.2 Acidosis; R09.02 Hypoxemia; G40.909 Epilepsy, unspecified, not intractable, without status epilepticus; I10 Essential (primary) hypertension; E03.9 Hypothyroidism, unspecified; M54.40 Lumbago with sciatica, unspecified side; E78.5 Hyperlipidemia, unspecified; Z68.34 Body mass index [BMI] 34.0-34.9, adult; G89.4 Chronic pain syndrome; K21.0 Gastro-esophageal reflux disease with esophagitis; S82.891A Other fracture of right lower leg, initial encounter for closed fracture; M45.9 Ankylosing spondylitis of unspecified sites in spine; F43.10 Post-traumatic stress disorder, unspecified; G47.30 Sleep apnea, unspecified; Z86.73 Personal history of transient ischemic attack (TIA), and cerebral infarction without residual deficits; Z91.19 Patient's noncompliance with other medical treatment and regimen; Z90.81 Acquired absence of spleen; Z87.891 Personal history of nicotine dependence; Z87.01 Personal history of pneumonia (recurrent); Z86.14 Personal history of Methicillin resistant Staphylococcus aureus infection; Z79.899 Other long term (current) drug therapy; Z79.82 Long term (current) use of aspirin
CPT/HCPCS: 36600; 70450; 71010; 73610; 80048; 80053; 81003; 82140; 82550; 82553; 82803; 83605; 85027; 85379; 87040; 87086; 94799; 99202; 99281; 99285; J1630; J1650; J2060

== ENCOUNTER 2017-08-16 16:29 | Inpatient (IN) | payer OTHER ==
[~2017-08-16] VITALS: Ht 157.5 cm; Wt 96.6 kg
[~2017-08-16 16:29] MED LIST changes: +VOLTAREN 1% GE100 GM TP
[2017-08-16 17:22] LABS: EOSINOPHIL (%) 1.6 % (0-5); EOSINOPHIL COUNT 0.1 K/uL (0-0.3); IMMATURE GRANULOCYTE (%) 0.7 % (0.0-0.7); INSTRUMENT ABS NEUTROPHIL CT 1.5 K/uL; MCH 32.2 PG (29.0-34.0); MCHC 34.7 G/DL (30.0-36.0); MCV 92.8 FL (83-99); MEAN PLAT.VOLUME 8.6 uM^3 (9.5-12.4); MONOCYTE (%) 16.6 % (3-12); MONOCYTE COUNT 0.7 K/uL (0-0.8); NEUTROPHIL (%) 34.7 % (45-76); NEUTROPHIL COUNT 1.5 K/uL (1.8-6.4); PLATELET COUNT 162 K/uL (156-360); RBC DIS.WIDTH-CV 14.4 % (11.8-14.6); RBC DIS.WIDTH-SD 48.8 % (39-53); RED BLOOD COUNT 3.45 M/uL (3.80-5.20); WHITE BLOOD COUNT 4.4 K/uL (4.1-10.2)
[2017-08-16 17:35] LABS: CHLORIDE 102 mEq/L (99-109); POTASSIUM 3.8 mEq/L (3.7-5.4); SODIUM 130 mEq/L (136-147)
[2017-08-16 17:37] LABS: GLUCOSE 102 mg/dL (70-99)
[2017-08-16 17:38] LABS: ANION GAP 8 MEQ/L (2-14)
[2017-08-16 17:40] LABS: GFR ESTIMATE (CALCULATED) > 59 mL/min/; INTER. NORMALIZED RATIO 1.3; PROTHROMBIN TIME 14.5 SEC (10.2-12.9)
[2017-08-16 17:41] LABS: UREA NITROGEN (BUN) 7 mg/dL (9-23)
[2017-08-16] MEDS ORDERED: TOPAMAX50 MG PO (21:32)
[2017-08-16] MEDS ORDERED: LOVENOX40 MG/0.4 SC (21:32)
[2017-08-16] MEDS ORDERED: TROKENDI XR50 MG PO (21:36)
[2017-08-16 22:57] VITALS: BP 164/76
[2017-08-17 01:35] LABS: HDL CHOLESTEROL 54 MG/DL (Desirable>=50); LDL CHOLESTEROL 66 mg/dL (Desirable<100); NON-HDL CHOLESTEROL 82 mg/dL (Desirable<160); SAMPLE HEMOLYSIS CHECK 0; SAMPLE ICTERIC CHECK 0; SAMPLE LIPEMIA CHECK 0; TOTAL CHOLESTEROL 136 mg/dL (Desirable<200); TRIGLYCERIDES 81 MG/DL (Normal: <150)
[2017-08-17 03:40] VITALS: BP 101/60
[2017-08-17 06:00] LABS: HEMATOCRIT 30.4 % (36.0-46.0); MCH 32.6 PG (29.0-34.0); MCHC 34.5 G/DL (30.0-36.0); MCV 94.4 FL (83-99); MEAN PLAT.VOLUME 9.1 uM^3 (9.5-12.4); PLATELET COUNT 168 K/uL (156-360); RBC DIS.WIDTH-CV 14.3 % (11.8-14.6); RBC DIS.WIDTH-SD 49.5 % (39-53); RED BLOOD COUNT 3.22 M/uL (3.80-5.20)
[2017-08-17 06:45] LABS: ALKALINE PHOSPHATASE 51 IU/L (3-129); ANION GAP 6 MEQ/L (2-14); CHLORIDE 103 MEQ/L (99-109); GFR ESTIMATE (CALCULATED) > 59 mL/min/; GLUCOSE 91 mg/dL (70-99); POTASSIUM 4.1 MEQ/L (3.7-5.4); SAMPLE HEMOLYSIS CHECK 0; SAMPLE ICTERIC CHECK 0; SAMPLE LIPEMIA CHECK 0; SODIUM 131 MEQ/L (136-147); TOTAL BILIRUBIN 0.4 MG/DL (0.0-1.0); UREA NITROGEN (BUN) 8 mg/dL (9-23)
[2017-08-17 08:08] VITALS: BP 98/61
[2017-08-17 09:03] LABS: Estimated Average Glucose 94 mg/dL (70-123); HEMOGLOBIN A1c (GLYCOHEMOGLOB) 4.9 % HGB (Below 5.7)
[2017-08-17 11:24] VITALS: BP 109/70
[2017-08-17 16:20] VITALS: BP 112/69
[2017-08-17 19:40] VITALS: BP 101/64
[2017-08-18] VITALS (7 sets, daily range): BP systolic 112–162; BP diastolic 60–92
[2017-08-19 05:10] VITALS: BP 120/90
[2017-08-19 08:03] VITALS: BP 127/86
[2017-08-19] MEDS ORDERED: AMITRIPTYLINE H10 MG PO (10:24)
[2017-08-19 12:13] VITALS: BP 169/89
[2017-08-19 19:40] VITALS: BP 161/70
[2017-08-20 00:21] VITALS: BP 150/71
[2017-08-20 04:04] VITALS: BP 149/72
[2017-08-20 07:57] VITALS: BP 109/66
[2017-08-20] MEDS ORDERED: AMITRIPTYLINE H50 MG PO (13:44)
[2017-08-20] MEDS ORDERED: HYDROMORPHONE HC2 MG PO (13:44)
[2017-08-20 16:02] VITALS: BP 98/52
== END 2017-08-20 16:15 | DRG 103 ==
LOC: EME 16:29 → EDOF 21:24 → 5SOUTH 21:24 → ENRESERV 21:25 → 5SOUTH 22:47
PROVIDERS: Emergency Medicine; Hospitalist
DX: G43.101 Migraine with aura, not intractable, with status migrainosus (principal); E22.2 Syndrome of inappropriate secretion of antidiuretic hormone; F25.9 Schizoaffective disorder, unspecified; G40.909 Epilepsy, unspecified, not intractable, without status epilepticus; J44.9 Chronic obstructive pulmonary disease, unspecified; K21.9 Gastro-esophageal reflux disease without esophagitis; I10 Essential (primary) hypertension; E78.5 Hyperlipidemia, unspecified; M79.7 Fibromyalgia; G89.4 Chronic pain syndrome; F31.9 Bipolar disorder, unspecified; M19.90 Unspecified osteoarthritis, unspecified site; E66.01 Morbid (severe) obesity due to excess calories; Z68.38 Body mass index [BMI] 38.0-38.9, adult; Z86.14 Personal history of Methicillin resistant Staphylococcus aureus infection; Z86.73 Personal history of transient ischemic attack (TIA), and cerebral infarction without residual deficits; Z87.891 Personal history of nicotine dependence; Z87.01 Personal history of pneumonia (recurrent); S82.891D Other fracture of right lower leg, subsequent encounter for closed fracture with routine healing
CPT/HCPCS: 70450; 70551; 80048; 80053; 80061; 80164; 80306 90; 83036; 85025; 85027; 85610; 85651; 85730; 92523 GN; 97530 GO; 99202; 99281; 99285; J1170; J1200; J1650; J1885; J2765; J7030; Q0164; Q0177

== ENCOUNTER 2017-10-03 02:36 | Inpatient (IN) | payer OTHER ==
[~2017-10-03] VITALS: Ht 157.5 cm; Wt 89.9 kg
[~2017-10-03 02:36] MED LIST changes: +AMITRIPTYLINE H10 MG PO; +AMITRIPTYLINE H50 MG PO; +HYDROMORPHONE HC2 MG PO
[2017-10-03 04:24] LABS: EOSINOPHIL (%) 0.8 % (0-5); HEMATOCRIT 34.5 % (36.0-46.0); IMMATURE GRANULOCYTE (%) 0.2 % (0.0-0.7); INSTRUMENT ABS NEUTROPHIL CT 2.4 K/uL; MCH 33.3 PG (29.0-34.0); MCHC 34.2 G/DL (30.0-36.0); MCV 97.5 FL (83-99); MEAN PLAT.VOLUME 10.5 uM^3 (9.5-12.4); MONOCYTE (%) 12.9 % (3-12); MONOCYTE COUNT 0.7 K/uL (0-0.8); NEUTROPHIL (%) 46.7 % (45-76); NEUTROPHIL COUNT 2.4 K/uL (1.8-6.4); NRBC (%) 0.4 /100 WBC (0-0); PLATELET COUNT 127 K/uL (156-360); RBC DIS.WIDTH-SD 46.4 % (39-53); RED BLOOD COUNT 3.54 M/uL (3.80-5.20); WHITE BLOOD COUNT 5.1 K/uL (4.1-10.2)
[2017-10-03 04:25] LABS: CHLORIDE 105 mEq/L (99-109); POTASSIUM 4.1 mEq/L (3.7-5.4); SODIUM 139 mEq/L (136-147)
[2017-10-03 04:27] LABS: GLUCOSE 93 mg/dL (70-99)
[2017-10-03 04:28] LABS: ANION GAP 12 MEQ/L (2-14)
[2017-10-03 04:30] LABS: SERUM ETHYL ALCOHOL < 10 mg/dL
[2017-10-03 04:31] LABS: GFR ESTIMATE (CALCULATED) > 59 mL/min/
[2017-10-03 04:32] LABS: UREA NITROGEN (BUN) 6 mg/dL (9-23)
[2017-10-03 04:46] LABS: ADD MIUA? YES; BILIRUBIN NEGATIVE; BLOOD SMALL; COLOR YELLOW ((YELLOW)); GLUCOSE (STRIP) NEGATIVE; KETONES NEGATIVE; LEUKOCYTES LARGE; NITRITE NEGATIVE; PROTEIN (STRIP) NEGATIVE; UROBILINOGEN 0.2 MG/DL (0.2-1.0)
[2017-10-03 04:52] LABS: BACTERIA NONE SEEN /HPF; EPITHELIAL CELLS 3+ /HPF; MUCUS TRACE /LPF; WHITE BLOOD CELLS TNTC /HPF (0-5)
[2017-10-03 05:50] LABS: AMPHETAMINE NEGATIVE (500 ng/mL); BENZODIAZEPINES NEGATIVE (150 ng/mL); COCAINE NEGATIVE (150 ng/mL); METHADONE NEGATIVE (200 ng/mL); METHAMPHETAMINE NEGATIVE (500 ng/mL); OPIATES (MORPHINE) PRESUMPTIVE POSITIVE (100 ng/mL); PHENCYCLIDINE NEGATIVE (25 ng/mL); THC CANNABINOIDS NEGATIVE (50 ng/mL); TRICYCLIC ANTIDEPRESSANTS PRESUMPTIVE POSITIVE (300 ng/mL)
[2017-10-03 05:51] LABS: BARBITURATES NEGATIVE (200 ng/mL); INTERNAL CONTROLS VALID? YES; OXYCODONE PRESUMPTIVE POSITIVE (100 ng/mL); PROPOXYPHENE PRESUMPTIVE POSITIVE (300 ng/mL)
[2017-10-03 05:52] LABS: ADD MEDTOX COMMENT Y
[2017-10-03 10:34] VITALS: BP 123/75
[2017-10-03 11:45] VITALS: BP 129/81
[2017-10-03] MEDS ORDERED: DURAGESIC12 MCG TD (15:11)
[2017-10-03] MEDS ORDERED: LO-DOSE ASPIRIN81 M2 PO (15:15)
[2017-10-03] MEDS ORDERED: SEROQUEL100 MG PO (15:15)
[2017-10-03] MEDS ORDERED: DESITIN TP (15:16)
[2017-10-03] MEDS ORDERED: MIRALAX17 GM PO (15:18)
[2017-10-03] MEDS ORDERED: LINZESS145 MCG PO (15:18)
[2017-10-03 16:26] VITALS: BP 116/73
[2017-10-03 19:40] VITALS: BP 110/64
[2017-10-03 23:54] VITALS: BP 120/58
[2017-10-04 02:55] LABS: METH RESISTANT S AUREUS PCR POSITIVE (NEGATIVE)
[2017-10-04 02:57] LABS: PROBE CHECK PASS
[2017-10-04 04:14] VITALS: BP 143/67
[2017-10-04 06:13] LABS: HEMATOCRIT 35.3 % (36.0-46.0); MCH 33.5 PG (29.0-34.0); MCHC 34.8 G/DL (30.0-36.0); MCV 96.2 FL (83-99); MEAN PLAT.VOLUME 9.6 uM^3 (9.5-12.4); PLATELET COUNT 92 K/uL (156-360); RBC DIS.WIDTH-CV 12.6 % (11.8-14.6); RBC DIS.WIDTH-SD 44.6 % (39-53); RED BLOOD COUNT 3.67 M/uL (3.80-5.20); WHITE BLOOD COUNT 3.4 K/uL (4.1-10.2)
[2017-10-04 06:40] LABS: ALKALINE PHOSPHATASE 56 IU/L (3-129); ANION GAP 9 MEQ/L (2-14); CHLORIDE 106 MEQ/L (99-109); DIRECT BILIRUBIN 0.1 mg/dL (0.0-0.3); GFR ESTIMATE (CALCULATED) > 59 mL/min/; GLUCOSE 87 mg/dL (70-99); POTASSIUM 4.6 MEQ/L (3.7-5.4); SAMPLE HEMOLYSIS CHECK 1; SAMPLE ICTERIC CHECK 0; SAMPLE LIPEMIA CHECK 0; SODIUM 136 MEQ/L (136-147); TOTAL BILIRUBIN 0.4 MG/DL (0.0-1.0); UREA NITROGEN (BUN) 6 mg/dL (9-23)
[2017-10-04 08:50] VITALS: BP 132/62
[2017-10-04 09:41] LABS: INTER. NORMALIZED RATIO 1.2; PROTHROMBIN TIME 13.5 SEC (10.2-12.9)
[2017-10-04 11:35] VITALS: BP 127/62
[2017-10-04 15:26] LABS: TROP-I INTERPRETATION NEGATIVE; TROPONIN-I < 0.01 ng/mL (0.0-0.30)
[2017-10-04 16:39] VITALS: BP 128/74
[2017-10-04 16:42] VITALS: BP 152/70
[2017-10-05 02:36] VITALS: BP 109/59
[2017-10-05 07:39] VITALS: BP 148/72
[2017-10-05 10:07] LABS: HEMATOCRIT 38.1 % (36.0-46.0); MCH 33.2 PG (29.0-34.0); MCHC 35.4 G/DL (30.0-36.0); MCV 93.6 FL (83-99); PLATELET COUNT 107 K/uL (156-360); RBC DIS.WIDTH-CV 12.4 % (11.8-14.6); RBC DIS.WIDTH-SD 42.7 % (39-53); RED BLOOD COUNT 4.07 M/uL (3.80-5.20); WHITE BLOOD COUNT 3.6 K/uL (4.1-10.2)
[2017-10-05 10:31] LABS: ANION GAP 10 MEQ/L (2-14); CHLORIDE 102 MEQ/L (99-109); GFR ESTIMATE (CALCULATED) > 59 mL/min/; GLUCOSE 105 mg/dL (70-99); POTASSIUM 3.7 MEQ/L (3.7-5.4); SAMPLE HEMOLYSIS CHECK 0; SAMPLE ICTERIC CHECK 0; SAMPLE LIPEMIA CHECK 0; SODIUM 133 MEQ/L (136-147); UREA NITROGEN (BUN) 4 mg/dL (9-23)
[2017-10-05 17:42] VITALS: BP 133/91
[2017-10-05 20:00] VITALS: BP 120/64
[2017-10-06 03:00] VITALS: BP 104/62
[2017-10-06 08:15] VITALS: BP 108/68
[2017-10-06 08:46] LABS: ANION GAP 9 MEQ/L (2-14); CHLORIDE 106 MEQ/L (99-109); POTASSIUM 3.7 MEQ/L (3.7-5.4); SAMPLE HEMOLYSIS CHECK 0; SAMPLE ICTERIC CHECK 0; SAMPLE LIPEMIA CHECK 0; SODIUM 137 MEQ/L (136-147)
[2017-10-06 08:51] LABS: GFR ESTIMATE (CALCULATED) > 59 mL/min/; GLUCOSE 103 mg/dL (70-99); UREA NITROGEN (BUN) 3 mg/dL (9-23)
[2017-10-06 15:59] VITALS: BP 110/75
[2017-10-06 23:06] VITALS: BP 188/128
[2017-10-07 09:26] VITALS: BP 138/92
[2017-10-07 20:00] VITALS: BP 140/88
[2017-10-08] VITALS: BP 141/91
[2017-10-08 06:39] VITALS: BP 132/79
[2017-10-08 09:02] VITALS: BP 143/67
[2017-10-08 09:22] LABS: HEMATOCRIT 39.8 % (36.0-46.0); MCH 32.8 PG (29.0-34.0); MCHC 34.2 G/DL (30.0-36.0); MCV 95.9 FL (83-99); MEAN PLAT.VOLUME 9.1 uM^3 (9.5-12.4); RBC DIS.WIDTH-CV 13.2 % (11.8-14.6); RBC DIS.WIDTH-SD 46.8 % (39-53); RED BLOOD COUNT 4.15 M/uL (3.80-5.20); WHITE BLOOD COUNT 5.9 K/uL (4.1-10.2)
[2017-10-08 09:25] LABS: PLATELET COUNT 171 K/uL (156-360)
[2017-10-08 10:00] LABS: ANION GAP 11 MEQ/L (2-14); CHLORIDE 106 MEQ/L (99-109); GFR ESTIMATE (CALCULATED) > 59 mL/min/; GLUCOSE 119 mg/dL (70-99); POTASSIUM 4.4 MEQ/L (3.7-5.4); SAMPLE HEMOLYSIS CHECK 0; SAMPLE ICTERIC CHECK 0; SAMPLE LIPEMIA CHECK 0; SODIUM 139 MEQ/L (136-147); UREA NITROGEN (BUN) 4 mg/dL (9-23)
[2017-10-08 20:00] VITALS: BP 148/89
[2017-10-09 10:53] VITALS: BP 132/92
[2017-10-09 13:04] VITALS: BP 146/92
[2017-10-09 16:36] VITALS: BP 143/89
[2017-10-09 19:30] VITALS: BP 148/82
[2017-10-10 08:30] VITALS: BP 142/82
[2017-10-10 12:14] VITALS: BP 132/73
[2017-10-10 15:37] VITALS: BP 128/78
[2017-10-10 19:54] VITALS: BP 143/89
[2017-10-10 23:54] VITALS: BP 118/61
[2017-10-11 04:02] VITALS: BP 167/95
[2017-10-12 00:27] VITALS: BP 147/72
[2017-10-12 09:07] VITALS: BP 171/100
[2017-10-12] MEDS ORDERED: XIFAXAN550 MG PO (13:48)
[2017-10-12] MEDS ORDERED: AMLODIPINE BESYL5 MG PO (13:49)
[2017-10-12] MEDS ORDERED: LAMICTAL25 MG PO (13:49)
[2017-10-12] MEDS ORDERED: SEROQUEL400 MG PO (13:50)
[2017-10-12] MEDS ORDERED: COGENTIN0.5 MG PO (13:51)
[2017-10-12] MEDS ORDERED: TRAMADOL HCL50 MG PO (13:58)
[2017-10-12 15:14] VITALS: BP 127/93
== END 2017-10-12 18:34 | DRG 71 ==
LOC: EME 02:36 → EDOF 08:56 → 5WEST 08:56 → EDOF 08:56 → ENRESERV 08:59 → 5WEST 09:59 → CANRESERV 10-04 23:54 → ENRESERV 10-04 23:54 → 5WEST 10-12 18:34
PROVIDERS: Emergency Medicine; Family Medicine; Internal Medicine; Nurse Practitioner Adult Health; Physician Assistant
DX: G93.41 Metabolic encephalopathy (principal); E72.20 Disorder of urea cycle metabolism, unspecified; T42.6X5A Adverse effect of other antiepileptic and sedative-hypnotic drugs, initial encounter; G25.1 Drug-induced tremor; F25.9 Schizoaffective disorder, unspecified; K75.81 Nonalcoholic steatohepatitis (NASH); E22.2 Syndrome of inappropriate secretion of antidiuretic hormone; G43.909 Migraine, unspecified, not intractable, without status migrainosus; I10 Essential (primary) hypertension; G89.29 Other chronic pain; M54.5 Low back pain; M19.90 Unspecified osteoarthritis, unspecified site; F43.10 Post-traumatic stress disorder, unspecified; G47.33 Obstructive sleep apnea (adult) (pediatric); D64.9 Anemia, unspecified; R19.7 Diarrhea, unspecified; T47.3X5A Adverse effect of saline and osmotic laxatives, initial encounter; E03.9 Hypothyroidism, unspecified; F31.9 Bipolar disorder, unspecified; D69.6 Thrombocytopenia, unspecified; E55.9 Vitamin D deficiency, unspecified; G40.909 Epilepsy, unspecified, not intractable, without status epilepticus; J44.9 Chronic obstructive pulmonary disease, unspecified; K21.9 Gastro-esophageal reflux disease without esophagitis; E78.5 Hyperlipidemia, unspecified; Z87.81 Personal history of (healed) traumatic fracture; Z86.73 Personal history of transient ischemic attack (TIA), and cerebral infarction without residual deficits; F22 Delusional disorders; M79.7 Fibromyalgia; Z86.14 Personal history of Methicillin resistant Staphylococcus aureus infection; Z87.01 Personal history of pneumonia (recurrent); Z87.891 Personal history of nicotine dependence; Z79.82 Long term (current) use of aspirin
CPT/HCPCS: 70450; 73610; 76705; 80048; 80076; 80164; 81003; 82140; 84484; 84999; 85025; 85027; 85610; 87040; 87086; 87493; 87641; 90839; 93005; 95819; 97530 GO; 97530 GP; 99281; 99285; G0378; G0480; J0696; J1650; J2060; S0028

== ENCOUNTER 2017-10-16 10:48 | Emergency (ER) | payer OTHER ==
[~2017-10-16] VITALS: Ht 162.6 cm; Wt 83.0 kg
[~2017-10-16 10:48] MED LIST changes: +AMLODIPINE BESYL5 MG PO; +DESITIN TP; +LAMICTAL25 MG PO; +SEROQUEL100 MG PO; +XIFAXAN550 MG PO
[2017-10-16 11:28] LABS: EOSINOPHIL (%) 1.3 % (0-5); EOSINOPHIL COUNT 0.1 K/uL (0-0.3); HEMATOCRIT 39.3 % (36.0-46.0); IMMATURE GRANULOCYTE (%) 0.2 % (0.0-0.7); INSTRUMENT ABS NEUTROPHIL CT 2.6 K/uL; LYMPHOCYTE COUNT 2.1 K/uL (1.0-2.8); MCH 32.7 PG (29.0-34.0); MCHC 34.1 G/DL (30.0-36.0); MCV 95.9 FL (83-99); MEAN PLAT.VOLUME 9.1 uM^3 (9.5-12.4); MONOCYTE COUNT 0.7 K/uL (0-0.8); NEUTROPHIL (%) 47.3 % (45-76); NEUTROPHIL COUNT 2.6 K/uL (1.8-6.4); RBC DIS.WIDTH-SD 46.3 % (39-53); WHITE BLOOD COUNT 5.5 K/uL (4.1-10.2)
[2017-10-16 11:29] LABS: PLATELET COUNT 278 K/uL (156-360)
[2017-10-16 11:38] LABS: CHLORIDE 111 mEq/L (99-109); POTASSIUM 3.7 mEq/L (3.7-5.4); SODIUM 139 mEq/L (136-147)
[2017-10-16 11:39] LABS: GLUCOSE 80 mg/dL (70-99); INTER. NORMALIZED RATIO 1.2; PROTHROMBIN TIME 13.1 SEC (10.2-12.9)
[2017-10-16 11:41] LABS: ANION GAP 9 MEQ/L (2-14)
[2017-10-16 11:42] LABS: PTT 35.3 SEC (25-37)
[2017-10-16 11:43] LABS: GFR ESTIMATE (CALCULATED) > 59 mL/min/
[2017-10-16 11:44] LABS: UREA NITROGEN (BUN) 5 mg/dL (9-23)
[2017-10-16 11:49] LABS: TROP-I INTERPRETATION NEGATIVE; TROPONIN-I < 0.01 ng/mL (0.0-0.30)
[2017-10-16 13:55] LABS: TROP-I INTERPRETATION NEGATIVE; TROPONIN-I < 0.01 ng/mL (0.0-0.30)
[2017-10-16 14:53] VITALS: BP 131/85
== END 2017-10-16 15:02 | disposition home or self-care (01) ==
LOC: EME → EDBD 10:48 → EME 10:48
PROVIDERS: Emergency Medicine
DX: R07.9 Chest pain, unspecified (principal); Z98.890 Other specified postprocedural states; R45.4 Irritability and anger; I10 Essential (primary) hypertension; J44.9 Chronic obstructive pulmonary disease, unspecified; Z86.73 Personal history of transient ischemic attack (TIA), and cerebral infarction without residual deficits; Z79.82 Long term (current) use of aspirin; Z87.891 Personal history of nicotine dependence
CPT/HCPCS: 71010; 80048; 82140; 84484; 85025; 85379; 85610; 85730; 93005; 99281; 99284

== ENCOUNTER 2017-10-31 08:57 | Inpatient (IN) | payer OTHER ==
[~2017-10-31] VITALS: Ht 157.5 cm; Wt 100.0 kg
[2017-10-31 11:05] LABS: HEMATOCRIT 33.5 % (36.0-46.0); PLATELET COUNT 243 K/uL (156-360); RBC DIS.WIDTH-CV 13.2 % (11.8-14.6); RBC DIS.WIDTH-SD 48.8 % (39-53); RED BLOOD COUNT 3.35 M/uL (3.80-5.20); WHITE BLOOD COUNT 4.5 K/uL (4.1-10.2)
[2017-10-31 11:06] LABS: HEMOGLOBIN 11.4 G/DL (11.9-15.5)
[2017-10-31 11:07] LABS: CHLORIDE 111 mEq/L (99-109); SODIUM 140 mEq/L (136-147)
[2017-10-31 11:08] LABS: ALBUMIN 2.8 g/dL (3.2-4.8); MAGNESIUM 1.4 mg/dL (1.3-2.7)
[2017-10-31 11:10] LABS: GLUCOSE 110 mg/dL (70-99); TOTAL PROTEIN 5.4 g/dL (6.4-8.3)
[2017-10-31 11:12] LABS: TOTAL BILIRUBIN 0.5 mg/dL (0.0-1.0)
[2017-10-31 11:13] LABS: SERUM ETHYL ALCOHOL < 10 mg/dL
[2017-10-31 11:14] LABS: ALKALINE PHOSPHATASE 206 IU/L (3-129); CREATININE 1.1 mg/dL (0.6-1.3); GFR ESTIMATE (CALCULATED) 55 mL/min/
[2017-10-31 11:15] LABS: AST (GOT) 27 IU/L (2-34); UREA NITROGEN (BUN) 5 mg/dL (9-23)
[2017-10-31 11:17] LABS: ALT (GPT) 23 IU/L (3-49)
[2017-10-31 12:42] LABS: APPEARANCE SL.HAZY ((CLEAR)); BILIRUBIN NEGATIVE; BLOOD NEGATIVE; COLOR YELLOW ((YELLOW)); GLUCOSE (STRIP) NEGATIVE; KETONES NEGATIVE; LEUKOCYTES TRACE; NITRITE NEGATIVE; PROTEIN (STRIP) NEGATIVE; SPECIFIC GRAVITY 1.015 (1.000-1.030); UROBILINOGEN 0.2 MG/DL (0.2-1.0)
[2017-10-31 12:51] LABS: THYROTROPIN (TSH) 1.8 MIU/L (0.4-5.5)
[2017-10-31 13:07] LABS: BACTERIA 1+ /HPF; EPITHELIAL CELLS 1+ /HPF; MUCUS TRACE /LPF; RED BLOOD CELLS 0-5 /HPF (0-5)
[2017-10-31 13:29] LABS: AMPHETAMINE NEGATIVE (500 ng/mL); BARBITURATES NEGATIVE (200 ng/mL); BENZODIAZEPINES NEGATIVE (150 ng/mL); BUPRENORPHINE NEGATIVE (10 ng/mL); COCAINE PRESUMPTIVE POSITIVE (150 ng/mL); METHADONE NEGATIVE (200 ng/mL); METHAMPHETAMINE NEGATIVE (500 ng/mL); OPIATES (MORPHINE) PRESUMPTIVE POSITIVE (100 ng/mL); OXYCODONE PRESUMPTIVE POSITIVE (100 ng/mL); PHENCYCLIDINE NEGATIVE (25 ng/mL); PROPOXYPHENE NEGATIVE (300 ng/mL); THC CANNABINOIDS NEGATIVE (50 ng/mL); TRICYCLIC ANTIDEPRESSANTS PRESUMPTIVE POSITIVE (300 ng/mL)
[2017-10-31] MEDS ORDERED: KLOR-CON M2020 MEQ PO (15:13)
[2017-10-31] MEDS ORDERED: SEROQUEL100 MG PO (15:14)
[2017-10-31] MEDS ORDERED: TROKENDI XR50 MG PO (15:14)
[2017-10-31] MEDS ORDERED: SEROQUEL400 MG PO (15:15)
[2017-10-31 16:52] VITALS: BP 137/61
[2017-10-31 20:32] VITALS: BP 110/68
[2017-11-01 07:19] LABS: HEMATOCRIT 29.4 % (36.0-46.0); HEMOGLOBIN 9.6 G/DL (11.9-15.5); MCH 32.7 PG (29.0-34.0); MCHC 32.7 G/DL (30.0-36.0); PLATELET COUNT 219 K/uL (156-360); RBC DIS.WIDTH-CV 13.1 % (11.8-14.6); RBC DIS.WIDTH-SD 48.4 % (39-53); RED BLOOD COUNT 2.94 M/uL (3.80-5.20); WHITE BLOOD COUNT 3.6 K/uL (4.1-10.2)
[2017-11-01 07:28] LABS: ALBUMIN 2.2 G/DL (3.2-4.8); ALKALINE PHOSPHATASE 155 IU/L (3-129); ALT (GPT) 14 IU/L (3-49); AST (GOT) 16 IU/L (2-34); CHLORIDE 117 MEQ/L (99-109); GFR ESTIMATE (CALCULATED) > 59 mL/min/; GLUCOSE 93 mg/dL (70-99); POTASSIUM 3.9 MEQ/L (3.7-5.4); SODIUM 144 MEQ/L (136-147); TOTAL BILIRUBIN 0.6 MG/DL (0.0-1.0); TOTAL PROTEIN 4.2 G/DL (6.4-8.3); UREA NITROGEN (BUN) 5 mg/dL (9-23)
[2017-11-01 07:47] VITALS: BP 95/53
[2017-11-01 13:05] VITALS: BP 96/62
[2017-11-01 16:14] VITALS: BP 98/56
[2017-11-02] VITALS: BP 98/61
[2017-11-02 07:39] VITALS: BP 93/51
[2017-11-02 09:56] LABS: BASOPHIL (%) 0.3 % (0-1); EOSINOPHIL (%) 1.8 % (0-5); EOSINOPHIL COUNT 0.1 K/uL (0-0.3); HEMATOCRIT 32.4 % (36.0-46.0); HEMOGLOBIN 10.9 G/DL (11.9-15.5); IMMATURE GRANULOCYTE (%) 0.3 % (0.0-0.7); LYMPHOCYTE (%) 40.4 % (15-42); LYMPHOCYTE COUNT 1.4 K/uL (1.0-2.8); MCH 32.8 PG (29.0-34.0); MCHC 33.6 G/DL (30.0-36.0); MCV 97.6 FL (83-99); MONOCYTE (%) 11.4 % (3-12); MONOCYTE COUNT 0.4 K/uL (0-0.8); NEUTROPHIL (%) 45.8 % (45-76); NEUTROPHIL COUNT 1.5 K/uL (1.8-6.4); PLATELET COUNT 247 K/uL (156-360); RBC DIS.WIDTH-CV 12.9 % (11.8-14.6); RBC DIS.WIDTH-SD 46.4 % (39-53); RED BLOOD COUNT 3.32 M/uL (3.80-5.20); WHITE BLOOD COUNT 3.3 K/uL (4.1-10.2)
[2017-11-02 10:32] LABS: CHLORIDE 113 MEQ/L (99-109); CREATININE 0.9 MG/DL (0.6-1.3); GFR ESTIMATE (CALCULATED) > 59 mL/min/; GLUCOSE 115 mg/dL (70-99); MAGNESIUM 1.7 mg/dl (1.3-2.7); POTASSIUM 3.8 MEQ/L (3.7-5.4); SODIUM 141 MEQ/L (136-147); UREA NITROGEN (BUN) 4 mg/dL (9-23)
== END 2017-11-02 13:36 | disposition hospice, inpatient (51) | DRG 885 ==
LOC: EME 08:57 → EDOF 13:57 → 5EAST 13:57 → ENRESERV 14:07 → 5EAST 15:57
PROVIDERS: Emergency Medicine; Physician Assistant
DX: F25.9 Schizoaffective disorder, unspecified (principal); F14.10 Cocaine abuse, uncomplicated; F31.9 Bipolar disorder, unspecified; F23 Brief psychotic disorder; E22.2 Syndrome of inappropriate secretion of antidiuretic hormone; D64.9 Anemia, unspecified; E03.9 Hypothyroidism, unspecified; E55.9 Vitamin D deficiency, unspecified; G43.909 Migraine, unspecified, not intractable, without status migrainosus; I95.9 Hypotension, unspecified; M54.5 Low back pain; R11.2 Nausea with vomiting, unspecified; K75.81 Nonalcoholic steatohepatitis (NASH); F43.10 Post-traumatic stress disorder, unspecified; G47.33 Obstructive sleep apnea (adult) (pediatric); G89.4 Chronic pain syndrome; I10 Essential (primary) hypertension; I35.0 Nonrheumatic aortic (valve) stenosis; J43.9 Emphysema, unspecified; K21.9 Gastro-esophageal reflux disease without esophagitis; M79.7 Fibromyalgia; S82.891D Other fracture of right lower leg, subsequent encounter for closed fracture with routine healing; E66.9 Obesity, unspecified; Z68.41 Body mass index [BMI] 40.0-44.9, adult; Z79.82 Long term (current) use of aspirin; Z86.73 Personal history of transient ischemic attack (TIA), and cerebral infarction without residual deficits; Z90.81 Acquired absence of spleen
CPT/HCPCS: 70450; 71045; 80048; 80053; 80175 90; 81003; 82140; 82272; 82948; 83605; 83735; 84443; 84999; 85025; 85027; 87086; 93005; 99202; 99281; 99285; G0480; J1650; J2060; J7030

== ENCOUNTER 2017-11-02 12:48 | Inpatient (IN) | payer OTHER ==
[~2017-11-02] VITALS: Ht 157.5 cm; Wt 78.7 kg
[~2017-11-02 12:48] MED LIST changes: +KLOR-CON M2020 MEQ PO
[2017-11-02 13:59] VITALS: BP 127/81
[2017-11-02 14:06] VITALS: BP 127/81
[2017-11-02 15:16] VITALS: BP 117/62
[2017-11-03 09:22] VITALS: BP 183/84
[2017-11-03 12:03] LABS: CHLORIDE 113 MEQ/L (99-109); CREATININE 0.8 MG/DL (0.6-1.3); GFR ESTIMATE (CALCULATED) > 59 mL/min/; GLUCOSE 122 mg/dL (70-99); POTASSIUM 3.8 MEQ/L (3.7-5.4); SODIUM 140 MEQ/L (136-147); UREA NITROGEN (BUN) 4 mg/dL (9-23)
[2017-11-03 15:23] VITALS: BP 131/75
[2017-11-03 20:37] VITALS: BP 136/83
[2017-11-04] LABS: BASOPHIL (%) 0.2 % (0-1); EOSINOPHIL (%) 0.2 % (0-5); HEMATOCRIT 36.4 % (36.0-46.0); HEMOGLOBIN 12.6 G/DL (11.9-15.5); IMMATURE GRANULOCYTE (%) 0.2 % (0.0-0.7); LYMPHOCYTE (%) 34.9 % (15-42); LYMPHOCYTE COUNT 1.5 K/uL (1.0-2.8); MCHC 34.6 G/DL (30.0-36.0); MCV 95.3 FL (83-99); MONOCYTE (%) 10.6 % (3-12); MONOCYTE COUNT 0.4 K/uL (0-0.8); NEUTROPHIL (%) 53.9 % (45-76); NEUTROPHIL COUNT 2.2 K/uL (1.8-6.4); PLATELET COUNT 283 K/uL (156-360); RBC DIS.WIDTH-CV 12.9 % (11.8-14.6); RBC DIS.WIDTH-SD 45.2 % (39-53); RED BLOOD COUNT 3.82 M/uL (3.80-5.20); WHITE BLOOD COUNT 4.2 K/uL (4.1-10.2)
[2017-11-04 00:08] LABS: CHLORIDE 113 mEq/L (99-109); POTASSIUM 3.9 mEq/L (3.7-5.4); SODIUM 140 mEq/L (136-147)
[2017-11-04 00:09] LABS: GLUCOSE 118 mg/dL (70-99)
[2017-11-04 00:13] LABS: CREATININE 0.8 mg/dL (0.6-1.3); GFR ESTIMATE (CALCULATED) > 59 mL/min/
[2017-11-04 00:14] LABS: UREA NITROGEN (BUN) 4 mg/dL (9-23)
[2017-11-04 08:09] VITALS: BP 136/73
[2017-11-04 09:04] LABS: C-REACTIVE PROTEIN 3.5 MG/L (0-10)
[2017-11-04 15:41] VITALS: BP 162/93
[2017-11-04 18:46] VITALS: BP 160/77
[2017-11-05 07:52] VITALS: BP 149/90
[2017-11-05 08:21] LABS: ALKALINE PHOSPHATASE 165 IU/L (3-129); ALT (GPT) 14 IU/L (3-49); AST (GOT) 16 IU/L (2-34); CHLORIDE 111 MEQ/L (99-109); CREATININE 0.8 MG/DL (0.6-1.3); GFR ESTIMATE (CALCULATED) > 59 mL/min/; GLUCOSE 132 mg/dL (70-99); POTASSIUM 3.2 MEQ/L (3.7-5.4); SODIUM 141 MEQ/L (136-147); TOTAL BILIRUBIN 0.7 MG/DL (0.0-1.0); TOTAL PROTEIN 5.6 G/DL (6.4-8.3); UREA NITROGEN (BUN) 4 mg/dL (9-23)
[2017-11-05] MEDS ORDERED: QUETIAPINE FUM400 MG PO (10:05)
== END 2017-11-05 11:32 | DRG 885 ==
LOC: 1WEST 12:48 → ENRESERV 13:02 → 1WEST 13:45
PROVIDERS: Hospitalist; Internal Medicine; Psychiatry & Neurology Psychiatry
DX: F25.0 Schizoaffective disorder, bipolar type (principal); E72.20 Disorder of urea cycle metabolism, unspecified; R41.0 Disorientation, unspecified; I10 Essential (primary) hypertension; E66.01 Morbid (severe) obesity due to excess calories; G40.909 Epilepsy, unspecified, not intractable, without status epilepticus; E86.0 Dehydration; R50.9 Fever, unspecified; R19.7 Diarrhea, unspecified; Z68.31 Body mass index [BMI] 31.0-31.9, adult; E03.9 Hypothyroidism, unspecified; E78.5 Hyperlipidemia, unspecified; K21.9 Gastro-esophageal reflux disease without esophagitis; G89.29 Other chronic pain; M54.9 Dorsalgia, unspecified; M45.9 Ankylosing spondylitis of unspecified sites in spine; M19.90 Unspecified osteoarthritis, unspecified site; G47.30 Sleep apnea, unspecified; I89.0 Lymphedema, not elsewhere classified; F41.9 Anxiety disorder, unspecified; E55.9 Vitamin D deficiency, unspecified; Z86.73 Personal history of transient ischemic attack (TIA), and cerebral infarction without residual deficits; Z90.81 Acquired absence of spleen; Z90.49 Acquired absence of other specified parts of digestive tract
CPT/HCPCS: 70450; 80048; 80048 91; 80053; 81003; 82140; 82550; 82948; 85025; 86140; 87086; 93005; 97166 GO; J1650; J2405; J7030

== ENCOUNTER 2017-11-05 10:11 | Inpatient (IN) | payer OTHER ==
[2017-11-05 15:03] VITALS: BP 158/64
[2017-11-05 20:51] VITALS: BP 139/85
[2017-11-06 00:09] VITALS: BP 142/89
[2017-11-06 06:48] LABS: HEMOGLOBIN 12.7 G/DL (11.9-15.5); MCH 32.2 PG (29.0-34.0); MCHC 33.4 G/DL (30.0-36.0); MCV 96.2 FL (83-99); PLATELET COUNT 305 K/uL (156-360); RBC DIS.WIDTH-CV 13.2 % (11.8-14.6); RBC DIS.WIDTH-SD 46.4 % (39-53); RED BLOOD COUNT 3.95 M/uL (3.80-5.20); WHITE BLOOD COUNT 5.5 K/uL (4.1-10.2)
[2017-11-06 06:49] LABS: CHLORIDE 112 MEQ/L (99-109); CREATININE 0.9 MG/DL (0.6-1.3); GFR ESTIMATE (CALCULATED) > 59 mL/min/; GLUCOSE 106 mg/dL (70-99); POTASSIUM 3.4 MEQ/L (3.7-5.4); SODIUM 143 MEQ/L (136-147); UREA NITROGEN (BUN) 4 mg/dL (9-23)
[2017-11-06 08:12] VITALS: BP 131/88
[2017-11-06 20:30] VITALS: BP 138/84
[2017-11-07 08:05] VITALS: BP 170/83
[2017-11-07] MEDS ORDERED: METOPROLOL SUCC25 MG PO (08:25)
[2017-11-07 10:01] LABS: CHLORIDE 111 MEQ/L (99-109); GFR ESTIMATE (CALCULATED) > 59 mL/min/; GLUCOSE 120 mg/dL (70-99); POTASSIUM 3.1 MEQ/L (3.7-5.4); SODIUM 140 MEQ/L (136-147); UREA NITROGEN (BUN) 4 mg/dL (9-23)
[2017-11-07 13:57] VITALS: BP 141/82
[2017-11-07 17:02] VITALS: BP 141/82
== END 2017-11-07 17:49 | DRG 885 ==
LOC: 4SOUTH 10:11 → ENRESERV 10:21 → 4SOUTH 11:37
PROVIDERS: Internal Medicine
DX: F25.0 Schizoaffective disorder, bipolar type (principal); F05 Delirium due to known physiological condition; G40.909 Epilepsy, unspecified, not intractable, without status epilepticus; E22.2 Syndrome of inappropriate secretion of antidiuretic hormone; E03.9 Hypothyroidism, unspecified; F41.9 Anxiety disorder, unspecified; I10 Essential (primary) hypertension; M45.9 Ankylosing spondylitis of unspecified sites in spine; E04.2 Nontoxic multinodular goiter; E87.6 Hypokalemia; K21.9 Gastro-esophageal reflux disease without esophagitis; G47.30 Sleep apnea, unspecified; E78.5 Hyperlipidemia, unspecified; M19.90 Unspecified osteoarthritis, unspecified site; I89.0 Lymphedema, not elsewhere classified; G89.29 Other chronic pain; E66.9 Obesity, unspecified; Z68.41 Body mass index [BMI] 40.0-44.9, adult; Z87.81 Personal history of (healed) traumatic fracture
CPT/HCPCS: 73560; 73610; 80048; 85027; 87493; J1650; J1885; J1953; J2405; J3480; J7042; J7050

== ENCOUNTER 2017-11-07 16:58 | Inpatient (IN) | payer OTHER ==
[2017-11-07 18:01] VITALS: BP 133/93
[2017-11-07 18:11] VITALS: BP 133/93
[2017-11-08 08:00] VITALS: BP 119/55
[2017-11-08 16:47] VITALS: BP 135/62
[2017-11-09 07:48] VITALS: BP 172/82
[2017-11-09 13:46] VITALS: BP 139/78
[2017-11-09 15:34] VITALS: BP 150/96
[2017-11-10 08:00] VITALS: BP 153/81
[2017-11-10 15:52] VITALS: BP 161/88
[2017-11-11 16:03] VITALS: BP 124/88
[2017-11-11 19:14] LABS: CHLORIDE 110 MEQ/L (99-109); CREATININE 0.9 MG/DL (0.6-1.3); GFR ESTIMATE (CALCULATED) > 59 mL/min/; GLUCOSE 142 mg/dL (70-99); POTASSIUM 3.3 MEQ/L (3.7-5.4); SODIUM 143 MEQ/L (136-147); UREA NITROGEN (BUN) 5 mg/dL (9-23)
[2017-11-12 14:15] VITALS: BP 124/74
[2017-11-12 15:53] VITALS: BP 121/58
[2017-11-13 16:00] VITALS: BP 136/66
[2017-11-14 15:37] VITALS: BP 160/105
[2017-11-15 07:44] VITALS: BP 138/74
[2017-11-15 14:48] LABS: HEMOGLOBIN 12.8 G/DL (11.9-15.5); MCH 33.2 PG (29.0-34.0); MCHC 34.6 G/DL (30.0-36.0); MCV 96.1 FL (83-99); PLATELET COUNT 341 K/uL (156-360); RBC DIS.WIDTH-CV 13.2 % (11.8-14.6); RBC DIS.WIDTH-SD 46.8 % (39-53); RED BLOOD COUNT 3.85 M/uL (3.80-5.20); WHITE BLOOD COUNT 5.4 K/uL (4.1-10.2)
[2017-11-15 14:56] LABS: CHLORIDE 108 mEq/L (99-109); SODIUM 137 mEq/L (136-147)
[2017-11-15 14:57] LABS: POTASSIUM 4.1 mEq/L (3.7-5.4)
[2017-11-15 14:58] LABS: GLUCOSE 123 mg/dL (70-99)
[2017-11-15 15:02] LABS: CREATININE 0.8 mg/dL (0.6-1.3); GFR ESTIMATE (CALCULATED) > 59 mL/min/
[2017-11-15 15:03] LABS: UREA NITROGEN (BUN) 8 mg/dL (9-23)
[2017-11-15 15:52] VITALS: BP 132/80
[2017-11-16] MEDS ORDERED: OLANZAPINE10 MG PO (09:03)
[2017-11-16] MEDS ORDERED: CLONAZEPAM0.5 MG PO (09:03)
[2017-11-16] MEDS ORDERED: AMLODIPINE BESYL5 MG PO (09:03)
[2017-11-16] MEDS ORDERED: METOPROLOL SUCC50 MG PO (09:03)
[2017-11-16] MEDS ORDERED: LAMICTAL25 MG PO (10:18)
== END 2017-11-16 10:21 | disposition home or self-care (01) | DRG 885 ==
LOC: ENRESERV 16:58 → 1WEST 16:58
PROVIDERS: Family Medicine; Hospitalist
DX: F25.9 Schizoaffective disorder, unspecified (principal); E22.2 Syndrome of inappropriate secretion of antidiuretic hormone; G40.909 Epilepsy, unspecified, not intractable, without status epilepticus; M25.512 Pain in left shoulder; F31.9 Bipolar disorder, unspecified; I10 Essential (primary) hypertension; E78.5 Hyperlipidemia, unspecified; M19.071 Primary osteoarthritis, right ankle and foot; E03.9 Hypothyroidism, unspecified; K21.9 Gastro-esophageal reflux disease without esophagitis; G47.30 Sleep apnea, unspecified; F41.9 Anxiety disorder, unspecified; G89.29 Other chronic pain; Z91.81 History of falling; Z87.81 Personal history of (healed) traumatic fracture; Z90.81 Acquired absence of spleen
CPT/HCPCS: 70450; 73030; 73060; 80048; 80053; 83735; 85027; 97150 GO; 97166 GO; 99202; Q0177

== ENCOUNTER 2018-04-04 20:28 | Emergency (ER) | payer OTHER, MEDICARE ==
[~2018-04-04] VITALS: Ht 160 cm; Wt 89.5 kg
[~2018-04-04 20:28] MED LIST changes: +CLONAZEPAM0.5 MG PO; +OLANZAPINE10 MG PO
[2018-04-04 21:00] LABS: BASOPHIL (%) 0.8 % (0-1); BASOPHIL COUNT 0.1 K/uL (0-0.1); EOSINOPHIL (%) 0 % (0-5); HEMATOCRIT 33.6 % (36.0-46.0); HEMOGLOBIN 11.5 G/DL (11.9-15.5); IMMATURE GRANULOCYTE (%) 0.3 % (0.0-0.7); LYMPHOCYTE (%) 31.5 % (15-42); LYMPHOCYTE COUNT 1.9 K/uL (1.0-2.8); MCH 30.8 PG (29.0-34.0); MCHC 34.2 G/DL (30.0-36.0); MCV 90.1 FL (83-99); MONOCYTE (%) 10.2 % (3-12); MONOCYTE COUNT 0.6 K/uL (0-0.8); NEUTROPHIL (%) 57.2 % (45-76); NEUTROPHIL COUNT 3.5 K/uL (1.8-6.4); PLATELET COUNT 256 K/uL (156-360); RBC DIS.WIDTH-CV 12.8 % (11.8-14.6); RBC DIS.WIDTH-SD 42.1 % (39-53); RED BLOOD COUNT 3.73 M/uL (3.80-5.20); WHITE BLOOD COUNT 6.1 K/uL (4.1-10.2)
[2018-04-04 21:13] LABS: ALBUMIN 4.1 g/dL (3.2-4.8); CHLORIDE 106 mEq/L (99-109); POTASSIUM 4.1 mEq/L (3.7-5.4); SODIUM 136 mEq/L (136-147)
[2018-04-04 21:14] LABS: MAGNESIUM 1.9 mg/dL (1.3-2.7)
[2018-04-04 21:16] LABS: GLUCOSE 109 mg/dL (70-99); TOTAL PROTEIN 6.6 g/dL (6.4-8.3)
[2018-04-04 21:17] LABS: TOTAL BILIRUBIN 0.5 mg/dL (0.0-1.0)
[2018-04-04 21:19] LABS: ALKALINE PHOSPHATASE 114 IU/L (3-129); CREATININE 1.2 mg/dL (0.6-1.3); GFR ESTIMATE (CALCULATED) 50 mL/min/
[2018-04-04 21:20] LABS: UREA NITROGEN (BUN) 16 mg/dL (9-23)
[2018-04-04 21:21] LABS: AST (GOT) 12 IU/L (2-34)
[2018-04-04 21:22] LABS: ALT (GPT) 9 IU/L (3-49)
[2018-04-04 21:23] LABS: TROP-I INTERPRETATION NEGATIVE; TROPONIN-I < 0.01 ng/mL (0.0-0.30)
[2018-04-04 22:03] LABS: THYROTROPIN (TSH) 1.2 MIU/L (0.4-5.5)
[2018-04-04 22:21] LABS: APPEARANCE CLEAR ((CLEAR)); BILIRUBIN NEGATIVE; BLOOD NEGATIVE; COLOR STRAW ((YELLOW)); GLUCOSE (STRIP) NEGATIVE; KETONES NEGATIVE; LEUKOCYTES MODERATE; NITRITE NEGATIVE; PROTEIN (STRIP) NEGATIVE; UROBILINOGEN 0.2 MG/DL (0.2-1.0)
[2018-04-04 22:45] LABS: BACTERIA NONE SEEN /HPF; EPITHELIAL CELLS RARE /HPF; MUCUS TRACE /LPF; RED BLOOD CELLS 0-5 /HPF (0-5); UCUL ADDED? YES
[2018-04-04] MEDS ORDERED: NITROFURANTOIN100 MG PO (22:51)
[2018-04-04 23:54] VITALS: BP 107/103
== END 2018-04-04 23:57 | disposition home or self-care (01) ==
LOC: EME → EDBD 20:28 → EME 20:28
PROVIDERS: Emergency Medicine
DX: N39.0 Urinary tract infection, site not specified (principal); M53.3 Sacrococcygeal disorders, not elsewhere classified; G25.71 Drug induced akathisia; M79.7 Fibromyalgia; G89.29 Other chronic pain; M45.9 Ankylosing spondylitis of unspecified sites in spine; J44.9 Chronic obstructive pulmonary disease, unspecified; I10 Essential (primary) hypertension; K21.9 Gastro-esophageal reflux disease without esophagitis; Z86.73 Personal history of transient ischemic attack (TIA), and cerebral infarction without residual deficits; Z87.891 Personal history of nicotine dependence; Z90.49 Acquired absence of other specified parts of digestive tract; Z79.82 Long term (current) use of aspirin; Z88.6 Allergy status to analgesic agent; Z88.1 Allergy status to other antibiotic agents; Z88.8 Allergy status to other drugs, medicaments and biological substances
CPT/HCPCS: 70450; 80053; 81003; 83735; 84443; 84484; 85025; 87086; 93005; 99281; 99285

== ENCOUNTER 2018-04-13 11:50 | Emergency (ER) | payer OTHER, MEDICARE ==
[~2018-04-13] VITALS: Ht 160 cm; Wt 89.6 kg
[~2018-04-13 11:50] MED LIST changes: +NITROFURANTOIN100 MG PO
[2018-04-13 12:28] LABS: APPEARANCE CLEAR ((CLEAR)); BILIRUBIN NEGATIVE; BLOOD NEGATIVE; COLOR STRAW ((YELLOW)); GLUCOSE (STRIP) NEGATIVE; KETONES NEGATIVE; LEUKOCYTES NEGATIVE; NITRITE NEGATIVE; PROTEIN (STRIP) NEGATIVE; SPECIFIC GRAVITY 1.006 (1.000-1.030); UCUL ADDED? NO; UROBILINOGEN 0.2 MG/DL (0.2-1.0)
[2018-04-13 13:26] LABS: HEMATOCRIT 35.3 % (36.0-46.0); HEMOGLOBIN 12.1 G/DL (11.9-15.5); MCH 30.9 PG (29.0-34.0); MCHC 34.3 G/DL (30.0-36.0); MCV 90.3 FL (83-99); PLATELET COUNT 281 K/uL (156-360); RBC DIS.WIDTH-CV 13.2 % (11.8-14.6); RBC DIS.WIDTH-SD 43.6 % (39-53); RED BLOOD COUNT 3.91 M/uL (3.80-5.20)
[2018-04-13 13:34] LABS: CHLORIDE 106 mEq/L (99-109); POTASSIUM 3.9 mEq/L (3.7-5.4); SODIUM 136 mEq/L (136-147)
[2018-04-13 13:36] LABS: GLUCOSE 108 mg/dL (70-99); TOTAL PROTEIN 6.4 g/dL (6.4-8.3)
[2018-04-13 13:38] LABS: TOTAL BILIRUBIN 0.3 mg/dL (0.0-1.0)
[2018-04-13 13:40] LABS: ALKALINE PHOSPHATASE 110 IU/L (3-129); CREATININE 1.2 mg/dL (0.6-1.3); GFR ESTIMATE (CALCULATED) 50 mL/min/
[2018-04-13 13:41] LABS: UREA NITROGEN (BUN) 13 mg/dL (9-23)
[2018-04-13 13:42] LABS: AST (GOT) 10 IU/L (2-34)
[2018-04-13 13:43] LABS: ALT (GPT) 8 IU/L (3-49)
[2018-04-13] MEDS ORDERED: DIFLUCAN150 MG PO (14:05)
[2018-04-13 14:59] VITALS: BP 153/77
== END 2018-04-13 15:00 | disposition home or self-care (01) ==
LOC: EME 11:50
PROVIDERS: Nurse Practitioner Family
DX: B37.3 Candidiasis of vulva and vagina (principal); J44.9 Chronic obstructive pulmonary disease, unspecified; I10 Essential (primary) hypertension; K21.9 Gastro-esophageal reflux disease without esophagitis; Z86.73 Personal history of transient ischemic attack (TIA), and cerebral infarction without residual deficits; Z87.440 Personal history of urinary (tract) infections; M79.7 Fibromyalgia; F43.10 Post-traumatic stress disorder, unspecified; Z79.82 Long term (current) use of aspirin; Z88.6 Allergy status to analgesic agent; Z86.69 Personal history of other diseases of the nervous system and sense organs
CPT/HCPCS: 80053; 81003; 85027; 99281; 99284

== ENCOUNTER 2018-06-01 10:58 | Emergency (ER) | payer OTHER, MEDICARE ==
[~2018-06-01] VITALS: Ht 160 cm; Wt 92.9 kg
[2018-06-01 12:12] LABS: BASOPHIL (%) 0.2 % (0-1); EOSINOPHIL (%) 0 % (0-5); HEMATOCRIT 31.9 % (36.0-46.0); IMMATURE GRANULOCYTE (%) 0.2 % (0.0-0.7); LYMPHOCYTE (%) 18.4 % (15-42); LYMPHOCYTE COUNT 1.6 K/uL (1.0-2.8); MCH 31.8 PG (29.0-34.0); MCHC 34.5 G/DL (30.0-36.0); MCV 92.2 FL (83-99); MONOCYTE COUNT 0.8 K/uL (0-0.8); NEUTROPHIL (%) 72.2 % (45-76); NEUTROPHIL COUNT 6.4 K/uL (1.8-6.4); PLATELET COUNT 290 K/uL (156-360); RBC DIS.WIDTH-CV 14.2 % (11.8-14.6); RBC DIS.WIDTH-SD 47.8 % (39-53); RED BLOOD COUNT 3.46 M/uL (3.80-5.20); WHITE BLOOD COUNT 8.9 K/uL (4.1-10.2)
[2018-06-01 12:43] LABS: CHLORIDE 102 MEQ/L (99-109); CREATININE 0.9 MG/DL (0.6-1.3); GFR ESTIMATE (CALCULATED) > 59 mL/min/; GLUCOSE 103 mg/dL (70-99); POTASSIUM 4.6 MEQ/L (3.7-5.4); SODIUM 135 MEQ/L (136-147); UREA NITROGEN (BUN) 10 mg/dL (9-23)
[2018-06-01 13:28] VITALS: BP 158/83
== END 2018-06-01 13:30 | disposition home or self-care (01) ==
LOC: EME 10:58
PROVIDERS: Family Medicine
DX: J40 Bronchitis, not specified as acute or chronic (principal); R01.1 Cardiac murmur, unspecified; J44.9 Chronic obstructive pulmonary disease, unspecified; I10 Essential (primary) hypertension; Z86.73 Personal history of transient ischemic attack (TIA), and cerebral infarction without residual deficits; Z79.82 Long term (current) use of aspirin; Z87.891 Personal history of nicotine dependence
CPT/HCPCS: 71046; 80048; 85025; 93005; 99281; 99284